=== PATIENT | female | born 1985 | race Caucasian/White ===

== ENCOUNTER 2017-06-03 16:17 | Emergency (ER) | payer OTHER ==
[~2017-06-03] VITALS: Ht 172.7 cm; Wt 113.4 kg
[~2017-06-03 16:17] MED LIST: ACYCLOVIR800 MG PO; ALBUTEROL SULF8.5 GM INH; AMBIEN5 MG PO; AMLODIPINE BESY10 MG PO; BACLOFEN10 MG PO; BUSPIRONE HCL15 MG; BUSPIRONE HCL5 MG PO; CHLORPROMAZINE10 MG PO; CIPRO500 MG PO; CLARITIN10 M1 PO; CLONIDINE HCL0.1 MG PO; COMPAZINE25 MG RC; COUMADIN5 MG PO; CRUTCH1 EACH; CYCLOBENZAPRINE10 MG PO; CYMBALTA60 MG PO; DOXYCYCLINE HY100 MG PO; DULOXETINE HCL60 MG PO; FLAGYL500 MG PO; FLEXERIL10 MG PO; GABAPENTIN100 MG PO; GABAPENTIN300 MG PO; GUAIATUSSIN AC10 ML PO; HYDROCODON-ACE1 EA10 PO; IBUPROFEN600 MG PO; IBUPROFEN800 MG PO; KEFLEX500 MG PO; KLOR-CON 1010 MEQ PO; LABETALOL HCL100 MG PO; LASIX20 MG PO; LORTAB 7.5-5001 EACH PO; MECLIZINE HCL25 MG PO; MEDROL4 M1 PO; MINIPRESS1 MG PO; MINIPRESS2 MG PO; NORCO 10-325 T1 EACH PO; NORCO 5-325 TA1 EACH PO; PENICILLIN V P500 MG PO; PHENERGAN25 MG/1 M1 PO; PRAZOSIN HCL1 MG PO; PREDNISONE20 MG PO; PRENATAL-FOLIC1 EACH PO; PROMETHAZINE HC25 M1 PO; PROMETHAZINE-COD5 ML PO; PROTONIX40 MG PO; SUCRALFATE1 GM PO; TRAZODONE HCL100 MG PO; ULTRAM50 MG PO; ZOFRAN ODT8 MG PO; ZOLOFT100 MG PO; ZOLOFT50 MG PO; [UNRECOGNIZED DRUG - OTHER] PO
[2017-06-03] MEDS ORDERED: IBUPROFEN200 MG PO (16:27)
== END 2017-06-03 17:41 | disposition home or self-care (01) ==
LOC: ED 16:17
DX: G43.909 Migraine, unspecified, not intractable, without status migrainosus (principal); G51.0 Bell's palsy; Z86.718 Personal history of other venous thrombosis and embolism; F17.200 Nicotine dependence, unspecified, uncomplicated; Z88.1 Allergy status to other antibiotic agents; Z88.8 Allergy status to other drugs, medicaments and biological substances; Z79.899 Other long term (current) drug therapy
CPT/HCPCS: 96372; 99282; J1885; J2550; J3030

== ENCOUNTER 2017-07-03 13:32 | Emergency (ER) | payer SELFPAY ==
[~2017-07-03] VITALS: Ht 172.7 cm; Wt 113.4 kg
[~2017-07-03 13:32] MED LIST changes: +IBUPROFEN200 MG PO
== END 2017-07-03 13:56 | disposition home or self-care (01) ==
LOC: ED 13:32
DX: Z00.8 Encounter for other general examination (principal)

== ENCOUNTER 2017-10-16 20:02 | Emergency (ER) | payer BC ==
[~2017-10-16] VITALS: Ht 172.7 cm; Wt 108.9 kg
[2017-10-16] MEDS ORDERED: IBUPROFEN600 MG PO (23:40)
[2017-10-16] MEDS ORDERED: TRAMADOL HCL50 MG PO (23:40)
== END 2017-10-17 00:10 | disposition home or self-care (01) ==
LOC: ED 20:02
DX: R10.32 Left lower quadrant pain (principal); F17.200 Nicotine dependence, unspecified, uncomplicated; Z90.49 Acquired absence of other specified parts of digestive tract; Z90.89 Acquired absence of other organs; Z98.51 Tubal ligation status; Z88.8 Allergy status to other drugs, medicaments and biological substances; Z88.1 Allergy status to other antibiotic agents
CPT/HCPCS: 74177; 80053; 81001; 83690; 84703; 85025; 96374; 96375; 99284; J2270; J2405; J7030; Q9967

== ENCOUNTER 2017-12-14 17:27 | Emergency (ER) | payer BC ==
[~2017-12-14] VITALS: Ht 172.7 cm; Wt 108.9 kg
[~2017-12-14 17:27] MED LIST changes: +TRAMADOL HCL50 MG PO
[2017-12-14] MEDS ORDERED: DULOXETINE HCL30 MG PO (17:54)
[2017-12-14] MEDS ORDERED: BUSPIRONE HCL5 MG PO (17:54)
[2017-12-14] MEDS ORDERED: CLONAZEPAM0.5 MG PO (17:55)
[2017-12-14] MEDS ORDERED: PRAZOSIN HCL2 MG PO (17:55)
[2017-12-14] MEDS ORDERED: GUAIFEN-CODEINE10 ML PO (18:00)
[2017-12-14] MEDS ORDERED: AUGMENTIN 875-1 EACH PO (18:00)
== END 2017-12-14 18:10 | disposition home or self-care (01) ==
LOC: ED 17:27
DX: J06.9 Acute upper respiratory infection, unspecified (principal); J40 Bronchitis, not specified as acute or chronic; F17.200 Nicotine dependence, unspecified, uncomplicated; Z88.1 Allergy status to other antibiotic agents; Z88.8 Allergy status to other drugs, medicaments and biological substances; Z79.899 Other long term (current) drug therapy
CPT/HCPCS: 99283

== ENCOUNTER 2018-02-07 18:22 | Emergency (ER) | payer BC ==
[~2018-02-07] VITALS: Ht 172.7 cm; Wt 108.9 kg
[~2018-02-07 18:22] MED LIST changes: +AUGMENTIN 875-1 EACH PO; +CLONAZEPAM0.5 MG PO; +DULOXETINE HCL30 MG PO; +GUAIFEN-CODEINE10 ML PO; +PRAZOSIN HCL2 MG PO
--- NOTE | 2018-02-08 19:25 | EKG ---
[facility] [address] [facility] [place], [place] [address] Signed Normal sinus rhythm Normal ECG Confirmed by CAYDEN BRINK MD ([id number]) on 02/08/2018 7:25:00 PM Electronically Signed By: CAYDEN BRINK MD 02/08/18 1925 PATIENT NAME: SHERRY PANIAGUA Electrocardiogram DATE OF : 85 PHYSICIAN: CAYDEN BRINK MD REPORT #: [id number] REPORT IS CONFIDENTIAL AND NOT TO BE RELEASED WITHOUT AUTHORIZATION
== END 2018-02-07 22:42 | disposition home or self-care (01) ==
LOC: ED 18:22
DX: R55 Syncope and collapse (principal); R51 Headache; F17.200 Nicotine dependence, unspecified, uncomplicated; Z88.8 Allergy status to other drugs, medicaments and biological substances; Z88.1 Allergy status to other antibiotic agents; Z79.899 Other long term (current) drug therapy
CPT/HCPCS: 70450; 71045; 80053; 81001; 83605; 84703; 85025; 93005; 93010; 96374; 96375; 99284; J0780; J1885; J2060; J2405; J2550

== ENCOUNTER 2018-02-25 17:17 | Emergency (ER) | payer BC ==
[~2018-02-25] VITALS: Ht 172.7 cm; Wt 108.9 kg
--- NOTE | 2018-02-26 12:42 | EKG ---
[facility] [address] [facility] [place], [place] [address] Signed Normal sinus rhythm Normal ECG When compared with ECG of 25-FEB-2018 17:50, (Unconfirmed) No significant change was found Confirmed by CAYDEN BRINK MD ([id number]) on 02/26/2018 12:42:34 PM Electronically Signed By: CAYDEN BRINK MD 02/26/18 1242 PATIENT NAME: SHERRY PANIAGUA Electrocardiogram DATE OF : [birth year] PHYSICIAN: CAYDEN BRINK MD REPORT #: [id number] REPORT IS CONFIDENTIAL AND NOT TO BE RELEASED WITHOUT AUTHORIZATION
--- NOTE | 2018-02-26 12:42 | EKG ---
[facility] [address] [facility] [place], [place] [address] Signed Normal sinus rhythm Normal ECG When compared with ECG of 07-FEB-2018 18:51, No significant change was found Confirmed by CAYDEN BRINK MD ([id number]) on 02/26/2018 12:42:26 PM Electronically Signed By: CAYDEN BRINK MD 02/26/18 1242 PATIENT NAME: ARCELIASHERRY RANJIT Electrocardiogram DATE OF : 85 PHYSICIAN: CAYDEN BRINK MD REPORT #: [id number] REPORT IS CONFIDENTIAL AND NOT TO BE RELEASED WITHOUT AUTHORIZATION
== END 2018-02-25 21:45 | disposition home or self-care (01) ==
LOC: ED 17:17
DX: T42.4X2A Poisoning by benzodiazepines, intentional self-harm, initial encounter (principal); F17.200 Nicotine dependence, unspecified, uncomplicated; Z88.8 Allergy status to other drugs, medicaments and biological substances; Z88.1 Allergy status to other antibiotic agents; Z79.899 Other long term (current) drug therapy
CPT/HCPCS: 80053; 80176; 81001; 84443; 84703; 85025; 93005; 93010; 99283; G0480

== ENCOUNTER 2019-01-02 19:53 | Emergency (ER) | payer OTHER, BC ==
[~2019-01-02] VITALS: Ht 172.7 cm; Wt 99.8 kg
--- OUTSIDE RECORDS SUMMARY | ~2019-01-02 | XMS | Clinical Summary ---
Demographics + + + | Address | [address] | | | [place] [address] | + + + | Home Phone | | + + + | Preferred Language | Unknown | + + + | Marital Status | | + + + | Jew Affiliation | Unknown | + + + | Race | Unknown | + + + | Ethnic Group | Unknown | + + + Author + + + | Author | [facility] | | | and [place] | + + + | Organization | [facility] | | | and [place] | + + + | Address | Unknown | + + + | Phone | Unavailable | + + + Support + + + + + | Name | Relationship | Address | Phone | + + + + + | Nae,Paulino | ECON | [address] | | | | | [place], [place] | | | | | [address] | | + + + + + Care Team Providers + +------+ + | Care Engraver Hand Soft Metals Name | Role | Phone | + +------+ + | No, Physician | PP | Unavailable | + +------+ + Allergies + + + + + + | Active Allergy | Reactions | Severity | Noted | Comments | | | | | Date | | + + + + + + | Diphenhydramine | | | 02/18/20 | "panic attack" | | | | | 18 | | + + + + + + | Metoclopramide | | High | 02/18/20 | "Can't breath" | | | | | 18 | | + + + + + + Current Medications + + +-------+---------+------+------+-------+ | Prescription | Sig. | Disp. | Refills | Star | End | Statu | | | | | | t | Date | s | | | | | | Date | | | + + +-------+---------+------+------+-------+ | DULoxetine | Take 30 mg by mouth | | | | | Activ | | (CYMBALTA) [address] | Daily. | | | | | e | | capsule | | | | | | | + + +-------+---------+------+------+-------+ | clonazePAM | Take 0.5 mg by mouth | | | | | Activ | | (KLONOPIN) 0.5 mg | nightly. | | | | | e | | tablet | | | | | | | + + +-------+---------+------+------+-------+ | prazosin | Take 2 mg by mouth | | | | | Activ | | (MINIPRESS) 2 MG | nightly. | | | | | e | | capsule | | | | | | | + + +-------+---------+------+------+-------+ | busPIRone (BUSPAR) | Take 5 mg by mouth 3 | | | | | Activ | | 5 mg tablet | times daily. | | | | | e | + + +-------+---------+------+------+-------+ Active Problems Not on file Social History + + + +--------+------+ | [...] + +---------+ + | Alcohol Use | Drinks/We | oz/Week | Comments | | | ek | | | + + +---------+ + | Yes | 1 Shots | 0.6 | " twice a month" | | | of | | | | | liquor | | | + + +---------+ + + + + | Sex Assigned at | Date Recorded | | | | + + + | Not on file | | + + + Last Filed Vital Signs + + + + | Vital Sign | Reading | Time Taken | + + + + | Blood Pressure | 131/65 | 02/17/20189 PDT | + + + + | Pulse | 72 | 02/17/20181801 PDT | + + + + | Temperature | 37.1 C (98.7 F) | 02/17/2018 1649 PDT | + + + + | Respiratory Rate | 21 | 02/17/20181801 PDT | + + + + | Oxygen Saturation | 99% | 02/17/20181801 PDT | + + + + | Inhaled Oxygen | - | - | | Concentration | | | + + + + | Weight | 113.4 kg (250 lb) | 02/17/20181648 PDT | + + + + | Height | 172.7 cm (5' 8") | 02/17/20181648 PDT | + + + + | Body Mass Index | 38.01 | 02/17/20181648 PDT | + + + + Plan of Treatment + + + + + | Health Maintenance | Due Date | Last Done | Comments | + + + + + | Vaccine: | | | | | Dtap/Tdap/Td (1 - | 5 | | | | Tdap) | | | | + + + + + | Cervical Cancer | | | | | Screening (Pap) | 6 | | | + + + + + | Vaccine: Influenza | | | | | (#1) | 8 | | | + + + + + Results Not on filefrom Last 3 Months Insurance +-------+--------+ +------+-------+---------+ | Payer | Benefi | Subscriber | Type | Phone | Address | | | t Plan | ID | | | | | | / | | | | | | | Group | | | | | +-------+--------+ +------+-------+---------+ | BCBS | BCBS | [id number] | PPO | | | | | OOS | 6 | | | | | | PPO | | | | | +-------+--------+ +------+-------+---------+ + +--------+ +--------+ + + | Guarantor Name | Accoun | Relation to | Date | Phone | Billing Address | | | t Type | Patient | of | | | | | | | | | | + +--------+ +--------+ + + | SHERRY PANIAGUA | Person | Self [birth year] | Home: | [address] | | | al/Fam | | 1986 | [phone] | [place] [address] | | | [place] | | | [phone] | | + +--------+ +--------+ + +
--- OUTSIDE RECORDS SUMMARY | ~2019-01-02 | XMS | Clinical Summary ---
Demographics + + + | Address | [address] | | | [place] [address] | + + + | Home Phone | | + + + | Preferred Language | Unknown | + + + | Marital Status | | + + + | Temple Affiliation | Unknown | + + + | Race | Unknown | + + + | Ethnic Group | Unknown | + + + Author + + + | Author | [facility] | | | and [place] | + + + | Organization | [facility] | | | and [place] [...] [place], [place] | | | | | [address] | | + + + + + Care Team Providers + +------+ + | Care Spar Finisher Name | Role | Phone | + [...] +-------+--------+ +------+-------+---------+ | BCBS | BCBS | [id number] | PPO | | | | | [...] | 1986 | [phone] | [place] [address] | | | berto | | | [phone] | | + +--------+ +--------+ + +
[~2019-01-02 19:53] MED LIST changes: +LATUDA60 MG; +OMEPRAZOLE20 MG PO
--- OUTSIDE RECORDS SUMMARY | 2019-01-02 19:56 | XMS ---
PreManage Notification: SHERRY PANIAGUA Security Jewelry Consultant Events No recent Security Events currently on file CRITERIA MET - Group Notification - [facility] - Has Care Guidelines CARE PROVIDERS There are no care providers on record at this time. Guidelines Source: [facility] Guidelines Date: 04/13/2017 Care Coordination: ENCOURAGE PATIENT TO USE PCP FOR FOLLOW UP AND NON-EMERGENT PROBLEMS. GIVE PATIENT THIS RODEO RIDER NAME AND NUMBER FOR HELP AND QUESTIONS. SUZETTE ELMORE RN CABLE MOCK UP ASSEMBLER [facility] [phone] E.DSuha VISIT COUNT (12 MO.) 1 [facility] [address] TOTAL 8 NOTE: Visits indicate total known visits. ED/UCC VISIT TRACKING (12 MO.) 01/02/2019 19:53 [facility] [place] TYPE: Emergency COMPLAINT: - R WRIST SELBY/INJURY 05/30/2018 18:40 [facility] TYPE: Emergency DIAGNOSES: - Mild intermittent asthma with (acute) exacerbation - Sepsis, unspecified organism - Nicotine dependence, unspecified, uncomplicated - Generalized Body Aches - Other stimulant dependence, in remission - Bodyaches 05/25/2018 10:54 [facility] TYPE: Emergency DIAGNOSES: - Unspecified abdominal pain - Abd pain and chest pain - Chest Pain - Abdominal Pain 05/23/2018 08:44 [facility] TYPE: Emergency DIAGNOSES: - Nicotine dependence, unspecified, uncomplicated - Shortness of Breath - Bronchitis, not specified as acute or chronic - Sob 04/26/2018 04:23 [facility] TYPE: Emergency COMPLAINT: - CHEST PAIN DIAGNOSES: - Nicotine dependence, unspecified, uncomplicated - Other manager of recruiting (current) drug therapy - Chest pain, unspecified 02/25/2018 17:17 [facility] TYPE: Emergency COMPLAINT: - POSS OD ON MEDICATION DIAGNOSES: - Nicotine dependence, unspecified, uncomplicated - Allergy status to other antibiotic agents status - Poisoning by benzodiazepines, intentional self-harm, initial encounter - Allergy status to other drugs, medicaments and biological substances status - Other intermediate (current) drug therapy [facility]17/2018 16:[facility] DIAGNOSES: - Slurred Speech - Possible Seizure - Panic disorder [episodic paroxysmal anxiety] - Conversion disorder with seizures or convulsions 02/07/2018 18:[address] [facility] [place] TYPE: Emergency COMPLAINT: - POSS SEZUIRE DIAGNOSES: - Allergy status to other antibiotic agents status - Nicotine dependence, unspecified, uncomplicated - Syncope and collapse - Allergy status to other drugs, medicaments and biological substances status - Other intermediate (current) drug therapy - Headache INPATIENT VISIT TRACKING (12 MO.) 05/30/2018 18:40 [facility] TYPE: Internal Medicine DIAGNOSES: - Nicotine dependence, unspecified, uncomplicated - Sepsis, unspecified organism - Other stimulant dependence, in remission - Mild intermittent asthma with (acute) exacerbation [email or web address]
[2019-01-02] MEDS ORDERED: SEROQUEL100 MG PO (20:31)
== END 2019-01-02 23:13 | disposition home or self-care (01) ==
LOC: ED 19:53
PROC: 2W3CX1Z Immobilization of Right Lower Arm using Splint (ICD-10-PCS; principal; 2019-01-02)
DX: S63.501A Unspecified sprain of right wrist, initial encounter (principal); F17.200 Nicotine dependence, unspecified, uncomplicated; Z90.49 Acquired absence of other specified parts of digestive tract; Z88.8 Allergy status to other drugs, medicaments and biological substances; Z88.1 Allergy status to other antibiotic agents; Z79.899 Other long term (current) drug therapy; W10.9XXA Fall (on) (from) unspecified stairs and steps, initial encounter
CPT/HCPCS: 29125; 73110; 99283-25

== ENCOUNTER 2019-02-13 21:49 | Emergency (ER) | payer BC, OTHER ==
[~2019-02-13] VITALS: Ht 172.7 cm; Wt 99.8 kg
--- OUTSIDE RECORDS SUMMARY | ~2019-02-13 | XMS | Clinical Summary ---
Demographics + + + | Address | [address] | | | [place] [address] | + + + | Home Phone | | + + + | Preferred Language | Unknown | + + + | Marital Status | | + + + | Gnosticist Affiliation | Unknown | + + + | Race | Unknown | + + + | Ethnic Group | Unknown | + + + Author + + + | Author | [facility] | | | and [place] | + + + | Organization | [facility] | | | and [place] [...] [place], [place] | | | | | [address] | | + + + + + Care Team Providers + +------+ + | Care Salvager Helper Name | Role | Phone | + [...] | + + + + + + Medications + + + +---------+------+------+-------+ | Medication | Sig | Dispensed | Refills | Star | End | Statu | | | | | | t | Date | s | | | | | | Date | | | + + + +---------+------+------+-------+ | DULoxetine | Take 30 mg by mouth | | 0 | | | Activ | | (CYMBALTA) [address] | Daily. | | | | | e | | capsule | | | | | | | + + + +---------+------+------+-------+ | clonazePAM | Take 0.5 mg by mouth | | 0 | | | Activ | | (KLONOPIN) 0.5 mg | nightly. | | | | | e | | tablet | | | | | | | + + + +---------+------+------+-------+ | prazosin | Take 2 mg by mouth | | 0 | | | Activ | | (MINIPRESS) 2 MG | nightly. | | | | | e | | capsule | | | | | | | + + + +---------+------+------+-------+ | busPIRone (BUSPAR) | Take 5 mg by mouth 3 | | 0 | | | Activ | | 5 mg tablet | times daily. | | | | | e | + + + +---------+------+------+-------+ Active Problems Not on file Social History [...] recent travel history available. | + + Last Filed Vital Signs + + + + | Vital Sign | Reading | Time Taken | + + + + | Blood Pressure | 131/65 | 02/17/20189 PDT | + + + + | Pulse | 72 | 02/17/20181801 PDT | + + + + | Temperature | 37.1 C (98.7 F) | 02/17/20181648 PDT | + + + [...] Vaccine: Influenza | | | | | (Season Ended) | 9 | | | + + + + + Results Not on filefrom Last 3 Months Insurance +-------+--------+ +--------+-------+---------+------+ | Payer | Benefi | Subscriber | Effect | Phone | Address | Type | | | t Plan | ID | jennifer | | | | | | / | | Dates | | | | | | Group | | | | | | +-------+--------+ +--------+-------+---------+------+ | BCBS | BCBS | [id number] | | | | PPO | | | OOS | 6 | [id number] | | | | | | PPO | | esent | | | | +-------+--------+ +--------+-------+---------+------+ + +--------+ +--------+ + + | Guarantor Name | Accoun | Relation to | Date | Phone | Billing Address | | | t Type | Patient | of | | | | | | | | | | + +--------+ +--------+ + + | Jessica Soni | Person | Self | [birth year] | | [address] | | | al/Elder | | 1986 | [phone] | [place] [address] | | | [place] | | | 4 (Home) | | + +--------+ +--------+ + + Advance Directives Patient has advance care planning documents on file. For more information, please contact:[facility] [place] [address]
--- OUTSIDE RECORDS SUMMARY | ~2019-02-13 | XMS | Clinical Summary ---
Demographics + + + | Address | [address] | | | [place] [address] | + + + | Home Phone | | + + + | Preferred Language | Unknown | + + + | Marital Status | | + + + | Sikhism Affiliation | Unknown | + + + | Race | Unknown | + + + | Ethnic Group | Unknown | + + + Author + + + | Author | [facility] | | | and [place] | + + + | Organization | [facility] | | | and [place] | [...] [place], [place] | | | | | [address] | | + + + + + Care Team Providers + +------+ + | Care Auditor Internal Name | Role | Phone | + [...] +-------+--------+ +--------+-------+---------+------+ | BCBS | BCBS | [id number] | | | | PPO | | [...] | 1986 | [phone] | [place] [address] | | | [place] | | | 4 (Home) | | + +--------+ +--------+ + + Advance Directives Patient has advance care planning documents on file. For more information, please contact:[facility] [place] [address]
[~2019-02-13 21:49] MED LIST changes: +SEROQUEL100 MG PO
--- OUTSIDE RECORDS SUMMARY | 2019-02-13 21:52 | XMS ---
PreManage Notification: SHERRY PANIAGUA Security Bucket Hooker Events No recent Security Events currently on file CRITERIA MET - Group Notification - [facility] - Has Care Guidelines CARE PROVIDERS BENJI LARSEN Nurse Practitioner: Family 01/03/2019-Current PHONE: Unknown Guidelines Source: [facility] Guidelines Date: 04/13/2017 Care Coordination: ENCOURAGE PATIENT TO USE PCP FOR FOLLOW UP AND NON-EMERGENT PROBLEMS. GIVE PATIENT THIS PRE CODER NAME AND NUMBER FOR HELP AND QUESTIONS. SUZETTE ELMORE RN JACKET CHANGER [facility] [phone] Care History Medical/Surgical 01/03/2019 [facility] - Patient is currently established with [facility]. If patient is seen in the ED during business hours. Please contact CHWs at [facility]. Care Recommendation: This patient has had 5 or more Emergency Department visits in the last 12 months.\T\nbsp; Patient requires education on the scope and purpose of the ED as an acute care provider not a Primary Care Provider and should not be utilized for chronic conditions.\T\nbsp; These are guidelines and the provider should exercise clinical judgment when providing care. E.D. VISIT COUNT (12 MO.) 1 [facility] 3 [facility] 4 HER[facility]ERT Carballo TOTAL 8 NOTE: Visits indicate total known visits. ED/UCC VISIT TRACKING (12 MO.) 02/13/2019 21:50 [facility] [place] TYPE: Emergency COMPLAINT: - POSS BLOOD CLOT 01/02/2019 19:53 [facility] [place] TYPE: Emergency COMPLAINT: - R WRIST SELBY/INJURY DIAGNOSES: - Pain in right wrist - Fall (on) (from) unspecified stairs and steps, initial encounter - Acquired absence of other specified parts of digestive tract - Other salvage determiner (current) drug therapy - Nicotine dependence, unspecified, uncomplicated - Allergy status to other antibiotic agents status - Unspecified sprain of right wrist, initial encounter - Allergy status to other drugs, medicaments and biological substances status 05/30/2018 18:40 [facility] TYPE: Emergency DIAGNOSES: - Mild intermittent asthma with (acute) exacerbation - Sepsis, unspecified organism - Nicotine dependence, unspecified, uncomplicated - Generalized Body Aches - Other stimulant dependence, in remission - Bodyaches 05/25/2018 10:54 [facility] TYPE: Emergency DIAGNOSES: - Unspecified abdominal pain - Abd pain and chest pain - Chest Pain - Abdominal Pain 05/23/2018 08:44 [facility] TYPE: Emergency DIAGNOSES: - Nicotine dependence, unspecified, uncomplicated - Shortness of Breath - Bronchitis, not specified as acute or chronic - Sob 04/26/2018 04:[address] [facility] [place] TYPE: Emergency COMPLAINT: - CHEST PAIN DIAGNOSES: - Nicotine dependence, unspecified, uncomplicated - Other salvage determiner (current) drug therapy - Chest pain, unspecified 02/25/2018 17:17 [facility] [place] TYPE: Emergency COMPLAINT: - POSS OD ON MEDICATION DIAGNOSES: - Nicotine dependence, unspecified, uncomplicated - Allergy status to other antibiotic agents status - Poisoning by benzodiazepines, intentional self-harm, initial encounter - Allergy status to other drugs, medicaments and biological substances status - Other salvage determiner (current) drug therapy 02/17/2018 16:44 [facility] TYPE: Emergency DIAGNOSES: - Slurred Speech - Possible Seizure - Panic disorder [episodic paroxysmal anxiety] - Conversion disorder with seizures or convulsions INPATIENT VISIT TRACKING (12 MO.) 05/30/2018 18:40 [facility] TYPE: Internal Medicine DIAGNOSES: - Nicotine dependence, unspecified, uncomplicated - Sepsis, unspecified organism - Other stimulant dependence, in remission - Mild intermittent asthma with (acute) exacerbation [email or web address]
[2019-02-13] MEDS ORDERED: ELIQUIS5 MG PO (23:56)
== END 2019-02-14 00:08 | disposition home or self-care (01) ==
LOC: ED 21:49
DX: I82.492 Acute embolism and thrombosis of other specified deep vein of left lower extremity (principal); F17.200 Nicotine dependence, unspecified, uncomplicated; Z90.49 Acquired absence of other specified parts of digestive tract; Z88.1 Allergy status to other antibiotic agents; Z88.8 Allergy status to other drugs, medicaments and biological substances
CPT/HCPCS: 93971; 99283-25

== ENCOUNTER 2020-01-29 17:18 | Emergency (ER) | payer BC, OTHER ==
--- OUTSIDE RECORDS SUMMARY | ~2020-01-29 | XMS | Encounter Summary ---
Demographics + + + | Address | [address] | | | [place] [address] | + + + | Home Phone | | + + + | Preferred Language | Unknown | + + + | Marital Status | | + + + | Alevism Affiliation | Unknown | + + + | Race | Unknown | + + + | Ethnic Group | Unknown | + + + Author + + + | Author | [facility] | | | and [place] | + + + | Organization | [facility] | | | and [place] [...] [place], [place] | | | | | [address] | | + + + + + Care Team Providers + +------+ + | Care Hand Loom Weaver Name | Role | Phone | + +------+ + PCP | Unavailable | + +------+ + Encounter Details +--------+ + + + + | Date | Type | Department | Care Team | Description | +--------+ + + + + | 06/02/ | Hospital | [facility] | Conversion | Back pain, | | 2014 | Encounter | CONVERSION [address] | Transaction, | unspecified location | | | | [address] | Provider Unknown | | | | | [place] | [phone] | | | | | [address] | | | | | | [phone] | | | +--------+ + + + + Social History + +-------+ +--------+------+ | Tobacco Use | Types | Packs/Day | Years | Date | | | | | Used | | + +-------+ +--------+------+ | Never Assessed | | | | | + +-------+ +--------+------+ + + + | Sex Assigned at [...] + + documented as of this encounter Plan of Treatment Not on filedocumented as of this encounter Procedures + +--------+ + + + | Procedure Name | Priori | Date/Time | Associated Diagnosis | Comments | | | ty | | | | + +--------+ + + + | MRI LUMBAR SPINE WO | Routin | 05/06/2015 | | Results for this | | CONTRAST | e | 7:01 PM | | procedure are in the | | | | PDT | | results section. | + +--------+ + + + documented in this encounter Results MRI Lumbar Spine wo Contrast (05/06/2015 7:01 PM PDT) + + | Specimen | + + | | + + + + + | Narrative | Performed At | + + + | This is a non-reportable procedure without a radiologist report and | | | is used for image storage only | | + + + + + | Procedure Note | + + | Jose Enrique Villa - 05/23/2019 4:08 AM PDT This is a non-reportable procedure | | without a radiologist report and isused for image storage only | + + documented in this encounter Visit Diagnoses + + | Diagnosis | + + | Back pain, unspecified location | + + documented in this encounter"
--- OUTSIDE RECORDS SUMMARY | ~2020-01-29 | XMS | Clinical Summary ---
Demographics + + + | Address | [address] | | | [place] [address] | + + + | Home Phone | | + + + | Preferred Language | Unknown | + + + | Marital Status | | + + + | Yarsanism Affiliation | Unknown | + + + | Race | Unknown | + + + | Ethnic Group | Unknown | + + + Author + + + | Author | [facility] | | | and [place] | + + + | Organization | [facility] | | | and [place] | + + + | Address | Unknown | + + + | Phone | Unavailable | + + + Support + + + + + | Name | Relationship | Address | Phone | + + + + + | Paulino Soni | ECON | [address] | | | | | [place], [place] | | | | | [address] | | + + + + + Care Team Providers + +------+ + | Care Warehouse Specialist Name | Role | Phone | + +------+ + | Kulwant Bailey MD | PCP | | + +------+ + Allergies + + [...] | | + + + + + Plan of Treatment + + + + + | Health Maintenance | Due Date | Last Done | Comments | + + + + + | Vaccine: | | | | | Pneumococcal 19-64 | 2 | | | | (1 of 1 - PPSV23) | | | | + + + + + | Vaccine: | | | | | Dtap/Tdap/Td (1 - | 7 | | | | Tdap) | | | | + + + + + | Cervical Cancer | | | | | Screening (Pap) | 6 | | | + + + + + | Vaccine: Influenza | | | | | (Season Ended) | 0 | | | + + + + [...] +-------+--------+ +--------+-------+---------+------+ | BCBS | BCBS | [id number] | | | | PPO | | [...] Person | Self | [birth year] | | [address] | | | al/Fam | | 1986 | [phone] | [place] [address] | | | [place] | | | 4 (Home) | | + +--------+ +--------+ + + Advance Directives + + + + + | Type | Date Recorded | Patient | Explanation | | | | Casework Supervisor | | + + + + + | Power of | | | | | Rewriter | | | | + + + + + | Advance | 02/17/2018 6:17 | | | | Directive | PM | | | + + + + +
--- OUTSIDE RECORDS SUMMARY | ~2020-01-29 | XMS | Encounter Summary ---
Demographics + + + | Address | [address] | | | [place] [address] | + + + | Home Phone | | + + + | Preferred Language | Unknown | + + + | Marital Status | | + + + | Mormonism Affiliation | Unknown | + + + | Race | Unknown | + + + | Ethnic Group | Unknown | + + + Author + + + | Author | [facility] | | | and [place] | + + + | Organization | [facility] | | | and [...] [place], [place] | | | | | [address] | | + + + + + Care Team Providers + +------+ + | Care Bed And Breakfast Operator Name | Role | Phone | + +------+ + PCP | Unavailable | + +------+ + Encounter Details +--------+ + + + + | Date | Type | Department | Care Team | Description | +--------+ + + + + | 05/19/ | [facility] | [facility] | [place], | | | 2013 - | Encounter | CENTER SURGICAL [address] | Blaise Bradley MD [address] | | | | | [address] | [address] | | | 05/24/ | | [place], [place] | [place] [address] | | | 2012 | | [address] | [phone] | | | | | [phone] | | | +--------+ + + + [...] 0608 Date of Service: 05/24/131850 Status: Signed Window Air Conditioner Installer: Blaise Brsyon MD (Physician) Related Notes: Original Note by Blaise Bryson MD (Physician) filed at 05/24/131854 [facility] Service: Obstetrics & Gynecology Discharge Summary [...] HOSPITAL COURSE: The patient was admitted to [facility] where she was placed on the antepartum unit with hypertension and IUGR. A 24-hour urine obtained revealing 4.4 g protei n. Consultation was had with Dr. Terrazas. Recommendation made to proceed with delivery giv en evidence of severe preeclampsia with evidence of IUGR. The patient was then [facility] operating room where she underwent primary [...] PRIMARY SECTION; Surgeon: Blaise Bryson MD; Location: [facility] L& D; Service: BOOK PACKER; Laterality: N/A; Allergies Allergen Reactions Azithromycin Rash [...] up: Blaise Bryson MD [address] [address] Schedule an appointment as soon as possible for a visit on 05/29/2013 Kulwant Bailey MD [address] [facility] [facility] [place] [address] Schedule an appointment as soon as possible [...] Discontinued, Historical Med STOP taking these medications ycfdwbiywj-xbswgxucxdtmk-qbalwezj (FIORICET WITH CODEINE) [id number] MG per capsule Com ments: Reason for [...] 05/24/131850 Date of Service: 05/24/131847 Status: Signed Window Air Conditioner Installer: Blaise Bryson MD (Physician) Obstetrical Discharge Form [...] 05/24/131456 Date of Service: 05/24/131454 Status: Signed Window Air Conditioner Installer: Carlota Henry RN (Registered Nurse) Patient given discharge instructions, along with prescriptions. All questions answered, VSS , denies pain, all belongings sent with patient. Carlota Henry RN Blaise Hernandez MD - 05/23/2013 10:27 PM PDT Progress Notes by Blaise Bryson MD at 05/23/132226 Author: Blaise Bryson MD Service: Obstetrics/Gynecology Author Type: Physician Filed: 05/23/132228 Date of Service: 05/23/132226 Status: Signed Window Air Conditioner Installer: Blaise Bryson MD (Physician) [facility] Service: Obstetrics & Gynecology C/S Progress [...] Service: Obstetrics/Gynecology Author Type: Physician Filed: 05/22/13 2841 Date of Service: 05/22/132317 Status: Signed Window Air Conditioner Installer: Blaise Bryson MD (Physician) [facility] Service: Obstetrics & Gynecology C/S Progress [...] Author: OLIVIA Cox Service: (none) Author Type: Seafood Technology Specialist Filed: 05/21/131641 Date of Service: 05/21/131641 Status: Signed Window Air Conditioner Installer: OLIVIA Cox (Seafood Technology Specialist) CM met with Sherry KHOURY ([phone]) in her room. MOB stated she felt good enough to talk with me. FOB's name is Stone Dao. MOB and FOB reside together at [address] [place] [address]. MOB's 9 yo boy also resides with [...] carseat yet. CM informed MOB of $30 [facility] carseat. CM left name and number on NICU packet and encouraged MOB to cont act CM if any needs arise. OLIVIA Cox Blaise Hernandez MD - 05/20/2013 9:28 PM PDT Progress Notes by Blaise Bryson MD at 05/20/132127 Author: Blaise Bryson MD Service: Obstetrics/Gynecology Author Type: Physician Filed: 05/20/132134 Date of Service: 05/20/132127 Status: Signed Window Air Conditioner Installer: Blaise Bryson MD (Physician) [facility] Service: Obstetrics & Gynecology Antepartum Progress [...] At | + + + | CASE: [id number] PATIENT: SHERRY TESFAYE Surgical Pathology | EXTERNAL [...] | | comprised of pink-mckeon spongy parenchyma. Electrician Rectifier Maintenance sections of | | | the specimen are submitted as follows: Cassette Summary: (A1) | | | cord and membranes; (A2) printing sales representative full thickness section to | | | include a printing sales representative section of the described mckeon-brown | [...] | Testing performed at | | | [facility];[address] [facility];[place] [address] CULTURE | | | NO GROWTH | | | Testing performed at [facility], [address] [facility], | | | [place] [address] REPORT STATUS | | | 05/21/2013 FINAL [...]
--- OUTSIDE RECORDS SUMMARY | ~2020-01-29 | XMS | Encounter Summary ---
Demographics + + + | Address | [address] | | | [place] [address] | + + + | Home Phone | | + + + | Preferred Language | Unknown | + + + | Marital Status | | + + + | Sikhism Affiliation | Unknown | + + + | Race | Unknown | + + + | Ethnic Group | Unknown | + + + Author + + + | Author | [facility] | | | and [place] | + + + | Organization | [facility] | | | and [place] | + + + | Address | Unknown | + + + | Phone | Unavailable | + + + Support + + + + + | Name | Relationship | Address | Phone | + + + + + | Paulino oSni | ECON | [address] | | | | | [place] | | | | | [address] | | + + + + + Care Team Providers + +------+ + | Care Pasteurizing Machine Operator Name | Role | Phone | [...] + + | 02/17/ | Emergency | [facility] | Mimi Denise MD | Anxiety attack | | 2018 | | [facility] | [address] | (Primary Dx); | | | | [place] [address] | [place] [address] | Psychiatric | | | | [place], [place] | [phone] | pseudoseizure | | | | [address] | | | | | | [phone] | | | +--------+ + + + [...]
--- OUTSIDE RECORDS SUMMARY | ~2020-01-29 | XMS | Encounter Summary ---
Demographics + + + | Address | [address] | | | [place] [address] | + + + | Home Phone | | + + + | Preferred Language | Unknown | + + + | Marital Status | | + + + | Jewish Affiliation | Unknown | + + + | Race | Unknown | + + + | Ethnic Group | Unknown | + + + Author + + + | Author | [facility] | | | and [place] | + + + | Organization | [facility] [...] [place] | | | | | [address] | | + + + + + Care Team Providers + +------+ + | Care Journeyman Wireman Name | Role | Phone | + [...] | (Primary Dx); | | | | [place] [address] | [place] [address] | Psychiatric | | | | [place], [place] | [phone] | pseudoseizure | | | | [address] | | | | | | [phone] | | | +--------+ + + + [...] Care Everywhere.Anxiety, Your B ady's Response to (Latvian)documented in this encounter Medications at Time of [...]
--- OUTSIDE RECORDS SUMMARY | ~2020-01-29 | XMS | Encounter Summary ---
Demographics + + + | Address | [address] | | | [place] [address] | + + + | Home Phone | | + + + | Preferred Language | Unknown | + + + | Marital Status | | + + + | Adventism Affiliation | Unknown | + + + | Race | Unknown | + + + | Ethnic Group | Unknown | + + + Author + + + | Author | [facility] | | | and [place] | + + + | Organization | [facility] | | | and [place] [...] [place], [place] | | | | | [address] | | + + + + + Care Team Providers + +------+ + | Care Sheet Rock Nailer Name | Role | Phone | + +------+ + PCP | Unavailable | + +------+ + Encounter Details +--------+ + + + + | Date | Type | Department | Care Team | Description | +--------+ + + + + | 06/02/ | Hospital | [facility] | Conversion | Back pain, | | 2014 | Encounter | CONVERSION DEP [address] | Transaction, | unspecified location | | | | [address] | Provider Unknown | | | | | [place] | [phone] | | | | | [address] | | | | | | [phone] | | | +--------+ + + + [...]
--- OUTSIDE RECORDS SUMMARY | ~2020-01-29 | XMS | Encounter Summary ---
Demographics + + + | Address | [address] | | | [place] [address] | + + + | Home Phone | | + + + | Preferred Language | Unknown | + + + | Marital Status | | + + + | Nondenominational Affiliation | Unknown | + + + | Race | Unknown | + + + | Ethnic Group | Unknown | + + + Author + + + | Author | [facility] | | | and [place] | + + + | Organization | [facility] | | | and [place] | [...] | [place] | | | | | [address] | | + + + + + Care Team Providers + +------+ + | Care Tender Coordinator Name | Role | Phone | + [...] 2016 | | CONVERSION [address] | [address] | | | | | [address] | [place], | | | | | [facility] | [address] [place], | | | | | [address] | [place] [address] | | | | | [phone] | [phone] | | | | | | | [...] | | mmHg TR Vmax: 2.01 m/s Deodorizer Operator: LYLE Authenticated by: | | | LIOR [...] cmLVPWd: 0.81 cmLVOT Area: | | 4.08 [id number] Diam: 2.28 cm%FS: 31.88 %EF(Teich): 59.56 %ESV(Teich): [...] mlLAESV Index (A-L): 24.93 ml/m2LAAs A2C: 17.48 ag2HDPEO A-L A2C: 56.59 mlLALs | | A2C: 4.58 cmLAAs A4C: 17.33 [id number] A-L A4C: 49.53 mlLALs A4C: 5.14 cmAo Diam: | | 2.99 cmLA Diam: 3.93 cmLA/Ao: 1.31AV maxP.42 mmHgAV meanP.05 mmHgAV | | Vmax: 1.45 m/Samara Vmean: 0.91 m/Samara VTI: 24.77 cmAVA Vmax: 2.71 cm2AVA (VTI): | | 3.01 ul0ZDOG (Vmax): 0.00 cm2/m2AVAI (VTI): 0.00 cm2/m2LVOT maxP.71 mmHgLVOT | | meanP.17 mmHgLVSI Dopp: 33.22 ml/m2LVSV Dopp: 74.75 mlLVOT Vmax: 0.96 | | m/sLVOT Vmean: 0.70 m/sLVOT VTI: 18.28 cmMV A Stephen: 0.62 m/sMV DecT: 149.50 msMV | | E Stephen: 0.96 m/sMV E/A Ratio: 1.52MV PHT: 43.35 msMVA By PHT: 5.07 kj5Arlnll e': | | 0.10 m/sSeptal E/e': 9.32RAP: 5 mmHgRVSP: 21.16 mmHgTR maxP.16 mmHgTR | | Vmax: 2.01 m/s Deodorizer Operator: ROBERTuthenticated by: LIOR Meredith Date/Time: | | [...] |TR Vmax: 2.01 m/s | | | |Deodorizer Operator: | |Authenticated by: LIOR CUELLAR MD | |Report Date/Time: 11-12-2015 16:17:44 | | | |IMPRESSION: | |1. Essentially normal study. | + + documented in this encounter Visit Diagnoses Not on filedocumented in this encounter"
--- OUTSIDE RECORDS SUMMARY | ~2020-01-29 | XMS | Clinical Summary ---
Demographics + + + | Address | [address] | | | [place] [address] | + + + | Home Phone | | + + + | Preferred Language | Unknown | + + + | Marital Status | | + + + | Cheondoism Affiliation | Unknown | + + + | Race | Unknown | + + + | Ethnic Group | Unknown | + + + Author + + + | Author | [facility] | | | and [place] | + + + | Organization | [facility] | | | and [place] [...] [place], [place] | | | | | [address] | | + + + + + Care Team Providers + +------+ + | Care Senior Asset Manager Name | Role | Phone | + [...] +-------+--------+ +--------+-------+---------+------+ | BCBS | BCBS | [id number] | | | | PPO | | [...] | 1986 | [phone] | [place] [address] | | | berto | | | 4 (Home) | | + +--------+ +--------+ + + Advance Directives + + + + + | Type | Date Recorded | Patient | Explanation | | | | Manager Of Financial Reporting | | + + + + + | Power of | | | | | Engineer Assistant | | | | + + + + + | Advance | 02/17/2018 6:17 | | | | Directive | PM | | | + + + + +
--- OUTSIDE RECORDS SUMMARY | ~2020-01-29 | XMS | Encounter Summary ---
Demographics + + + | Address | [address] | | | [place] [address] | + + + | Home Phone | | + + + | Preferred Language | Unknown | + + + | Marital Status | | + + + | Islam Affiliation | Unknown | + + + | Race | Unknown | + + + | Ethnic Group | Unknown | + + + Author + + + | Author | [facility] | | | and [place] | + + + | Organization | [facility] | | | and [...] [place], [place] | | | | | [address] | | + + + + + Care Team Providers + +------+ + | Care Mattress Specialist Name | Role | Phone | + +------+ + PCP | Unavailable | + +------+ + Encounter Details +--------+ + + + + | Date | Type | Department | Care Team | Description | +--------+ + + + + | 05/19/ | [facility] | [facility] | [place], | | | 2013 - | Encounter | CENTER SURGICAL [address] | Blaise Bradley MD [address] | | | | | [address] | [address] | | | 05/24/ | | [place], [place] | [place] [address] | | | 2012 | | [address] | [phone] | | | | | [phone] | | | +--------+ + + + [...] 0608 Date of Service: 05/24/131850 Status: Signed Pellet Press Operator: Blaise Bryson MD (Physician) Related Notes: Original Note by Blaise Bryson MD (Physician) filed at 05/24/131854 [facility] Service: Obstetrics & Gynecology Discharge Summary [...] HOSPITAL COURSE: The patient was admitted to [facility] where she was placed on the antepartum unit with hypertension and IUGR. A 24-hour urine obtained revealing 4.4 g protei n. Consultation was had with Dr. Terrazas. Recommendation made to proceed with delivery giv en evidence of severe preeclampsia with evidence of IUGR. The patient was then brought to [facility] operating room where she underwent primary low [...] PRIMARY SECTION; Surgeon: Blaise Bryson MD; Location: [facility] L& D; Service: UROLOGY TEACHER; Laterality: N/A; Allergies Allergen Reactions Azithromycin Rash [...] up: Blaise Bryson MD [address] [address] Schedule an appointment as soon as possible for a visit on 05/29/2013 Kulwant Bailey MD [address] [facility] [address] Schedule an appointment as soon as possible [...] Discontinued, Historical Med STOP taking these medications hylxpqylyn-kzyfszvzalhby-esbclqwp (FIORICET WITH CODEINE) [id number] MG per capsule Com ments: Reason for [...] 05/24/131850 Date of Service: 05/24/131847 Status: Signed Pellet Press Operator: Blaise Bryson MD (Physician) Obstetrical Discharge Form [...] 05/24/131456 Date of Service: 05/24/131454 Status: Signed Pellet Press Operator: Carlota Henry RN (Registered Nurse) Patient given discharge instructions, along with prescriptions. All questions answered, VSS , denies pain, all belongings sent with patient. Carlota Henry RN Blaise Hernandez MD - 05/23/2013 10:27 PM PDT Progress Notes by Blaise Bryson MD at 05/23/132226 Author: Blaise Bryson MD Service: Obstetrics/Gynecology Author Type: Physician Filed: 05/23/132228 Date of Service: 05/23/132226 Status: Signed Pellet Press Operator: Blaise Bryson MD (Physician) [facility] Service: Obstetrics & Gynecology C/S Progress [...] Service: Obstetrics/Gynecology Author Type: Physician Filed: 05/22/13 3391 Date of Service: 05/22/132317 Status: Signed Pellet Press Operator: Blaise Bryson MD (Physician) [facility] Service: Obstetrics & Gynecology C/S Progress [...] Author: OLIVIA Cox Service: (none) Author Type: Diesel Technician Mechanic Filed: 05/21/131641 Date of Service: 05/21/131641 Status: Signed Pellet Press Operator: OLIVIA Cox (Diesel Technician Mechanic) CM met with Sherry KHOURY ([phone]) in her room. MOB stated she felt good enough to talk with me. FOB's name is Stone Dao. MOB and FOB reside together at [address] [place] [address]. MOB's 9 yo boy also resides with [...] carseat yet. CM informed MOB of $30 [facility] carseat. CM left name and number on NICU packet and encouraged MOB to cont act CM if any needs arise. OLIVIA Cox Blaise Hernandez MD - 05/20/2013 9:28 PM PDT Progress Notes by Blaise Bryson MD at 05/20/132127 Author: Blaise Byrson MD Service: Obstetrics/Gynecology Author Type: Physician Filed: 05/20/132134 Date of Service: 05/20/132127 Status: Signed Pellet Press Operator: Blaise Bryson MD (Physician) [facility] Service: Obstetrics & Gynecology Antepartum Progress [...] At | + + + | CASE: [id number] PATIENT: SHERRY TESFAYE Surgical Pathology | EXTERNAL [...] | | comprised of pink-mckeon spongy parenchyma. Digital Developer sections of | | | the specimen are submitted as follows: Cassette Summary: (A1) | | | cord and membranes; (A2) visitor services representative full thickness section to | | | include a visitor services representative section of the described mckeon-brown [...] | Testing performed at | | | [facility];[address] [facility];[place] [address] CULTURE | | | NO GROWTH | | | Testing performed at [facility], [address] [facility], | | | [place] [address] REPORT STATUS | | | 05/21/2013 FINAL [...]
--- OUTSIDE RECORDS SUMMARY | ~2020-01-29 | XMS | Encounter Summary ---
Demographics + + + | Address | [address] | | | [place] [address] | + + + | Home Phone | | + + + | Preferred Language | Unknown | + + + | Marital Status | | + + + | Roman Catholic Affiliation | Unknown | + + + | Race | Unknown | + + + | Ethnic Group | Unknown | + + + Author + + + | Author | [facility] | | | and [place] | + + + | Organization | [facility] | [...] | [place] | | | | | [address] | | + + + + + Care Team Providers + +------+ + | Care Nuclear Logging Engineer Name | Role | Phone | + [...] [place], | | | | | [facility] [place] | [address], | | | | | [address] | [place] [address] | | | | | [phone] | [phone] | | | | | | | [...] | | mmHg TR Vmax: 2.01 m/s Political Science Instructor: LYLE Authenticated by: | | | LIOR [...] cmLVPWd: 0.81 cmLVOT Area: | | 4.08 [id number] Diam: 2.28 cm%FS: 31.88 %EF(Teich): 59.56 %ESV(Teich): [...] mlLAESV Index (A-L): 24.93 ml/m2LAAs A2C: 17.48 [id number] A-L A2C: 56.59 mlLALs | | A2C: 4.58 cmLAAs A4C: 17.33 pq0TGXKF A-L A4C: 49.53 mlLALs A4C: 5.14 cmAo Diam: | | 2.99 cmLA Diam: 3.93 cmLA/Ao: 1.31AV maxP.42 mmHgAV meanP.05 mmHgAV | | Vmax: 1.45 m/Samara Vmean: 0.91 m/Samara VTI: 24.77 cmAVA Vmax: 2.71 cm2AVA (VTI): | | 3.01 oq7KABS (Vmax): 0.00 cm2/m2AVAI (VTI): 0.00 cm2/m2LVOT maxP.71 mmHgLVOT | | meanP.17 mmHgLVSI Dopp: 33.22 ml/m2LVSV Dopp: 74.75 mlLVOT Vmax: 0.96 | | m/sLVOT Vmean: 0.70 m/sLVOT VTI: 18.28 cmMV A Stephen: 0.62 m/sMV DecT: 149.50 msMV | | E Stephen: 0.96 m/sMV E/A Ratio: 1.52MV PHT: 43.35 msMVA By PHT: 5.07 fw9Qnqdrp e': | | 0.10 m/sSeptal E/e': 9.32RAP: 5 mmHgRVSP: 21.16 mmHgTR maxP.16 mmHgTR | | Vmax: 2.01 m/s Political Science Instructor: ROBERTuthenticated by: LIOR Meredith Date/Time: | | [...] |TR Vmax: 2.01 m/s | | | |Political Science Instructor: | |Authenticated by: LIOR CUELLAR MD | |Report Date/Time: 11-12-2015 16:17:44 | | | |IMPRESSION: | |1. Essentially normal study. | + + documented in this encounter Visit Diagnoses Not on filedocumented in this encounter"
[~2020-01-29 17:18] MED LIST changes: +ELIQUIS5 MG PO
== END 2020-01-29 17:25 | disposition left against medical advice (07) ==
LOC: ED 17:18
DX: Z53.21 Procedure and treatment not carried out due to patient leaving prior to being seen by health care provider (principal)

== ENCOUNTER 2020-03-07 13:09 | Emergency (ER) | payer BC ==
[~2020-03-07] VITALS: Ht 172.7 cm; Wt 99.8 kg
--- OUTSIDE RECORDS SUMMARY | ~2020-03-07 | XMS | Encounter Summary ---
Demographics + + + | Address | [address] | | | [place] [address] | + + + | Home Phone | | + + + | Preferred Language | Unknown | + + + | Marital Status | | + + + | Mandaen Affiliation | Unknown | + + + | Race | Unknown | + + + | Ethnic Group | Unknown | + + + Author + + + | Author | [facility] | | | and [place] | + + + | Organization | [facility] | | | and [place] | + + + | Address | Unknown | + + + | Phone | Unavailable | + + + Support + + + + + | Name | Relationship | Address | Phone | + + + + + | Paulino Soni | ECON | [address] | | | | | [place] | | | | | [address] | | + + + + + Care Team Providers + +------+ + | [facility] Name | Role | Phone | + +------+ + | No, Physician | PCP | Unavailable | + +------+ + Reason for Visit + + + | Reason | Comments | + + + | Slurred Speech | | + + + | Possible Seizure | | + + + Encounter Details +--------+ + + + + | Date | Type | Department | Care Team | Description | +--------+ + + + + | 02/17/ | Emergency | [facility] | Mimi Denise MD | Anxiety attack | | 2018 | | [facility] | [address] | (Primary Dx); | | | | [place] [address] | [place] [address] | Psychiatric | | | | [place], [place] | [phone] | pseudoseizure | | | | [address] | | | | | | [phone] | | | +--------+ + + + + Social History + + + +--------+------+ | Tobacco Use | Types | Packs/Day | Years | Date | | | | | Used | | + + + +--------+------+ | Current Every Day | Cigarettes | | | | | Smoker | | | | | + + + +--------+------+ + +---+---+---+ | Smokeless Tobacco: | | | | | Never Used | | | | + +---+---+---+ + + +---------+ + | Alcohol Use | Drinks/Week | oz/Week | Comments | + + +---------+ + | Yes | 1 Shots of liquor | 1.0 | " twice a month" | + + +---------+ + + + + | Sex Assigned at | Date Recorded | | | | + + + | Not on file | | + + + + + + + | Job Start Date | Occupation | Industry | + + + + | Not on file | Not on file | Not on file | + + + + + + + + | Travel History | Travel Start | Travel End | + + + + + + | No recent travel history available. | + + documented as of this encounter Last Filed Vital Signs + + + + + | Vital Sign | Reading | Time Taken | Comments | + + + + + | Blood Pressure | 131/65 | 02/17/2018 5:29 PM | | | | | PDT | | + + + + + | Pulse | 72 | 02/17/2018 6:02 PM | | | | | PDT | | + + + + + | Temperature | 37.1 C (98.7 F) | 02/17/2018 4:49 PM | | | | | PDT | | + + + + + | Respiratory Rate | 21 | 02/17/2018 6:02 PM | | | | | PDT | | + + + + + | Oxygen Saturation | 99% | 02/17/2018 6:02 PM | | | | | PDT | | + + + + + | Inhaled Oxygen | - | - | | | Concentration | | | | + + + + + | Weight | 113.4 kg (250 lb) | 02/17/2018 4:49 PM | | | | | PDT | | + + + + + | Height | 172.7 cm (5' 8") | 02/17/2018 4:49 PM | | | | | PDT | | + + + + + | Body Mass Index | 38.01 | 02/17/2018 4:49 PM | | | | | PDT | | + + + + + documented in this encounter Discharge Instructions Instructions Mimi Denise MD - 02/17/2018You were evaluated in the ED today for a possib le seizure and were found to have an anxiety attack and likely a psychiatric pseudoseizure d ue to emotional stress. You should manage your stress with breathing techniques and medicati ons as needed. Follow up with your regular doctor or psychiatrist to further manage your sym ptoms. AttachmentsThe following attachments cannot be sent through Care Everywhere.Anxiety, Your B ady's Response to ([place])documented in this encounter Medications at Time of Discharge + + + +---------+--------+ + | Medication | Sig | Dispensed | Refills | Start | End Date | | | | | | Date | | + + + +---------+--------+ + | busPIRone (BUSPAR) | Take 5 mg by mouth 3 | | 0 | | | | 5 mg tablet | times daily. | | | | | + + + +---------+--------+ + | clonazePAM | Take 0.5 mg by mouth | | 0 | | | | (KLONOPIN) 0.5 mg | nightly. | | | | | | tablet | | | | | | + + + +---------+--------+ + | DULoxetine | Take 30 mg by mouth | | 0 | | | | (CYMBALTA) [address] | Daily. | | | | | | capsule | | | | | | + + + +---------+--------+ + | prazosin | Take 2 mg by mouth | | 0 | | | | (MINIPRESS) 2 MG | nightly. | | | | | | capsule | | | | | | + + + +---------+--------+ + documented as of this encounter Plan of Treatment + +------+--------+ + + | Name | Type | Priori | Associated Diagnoses | Date/Time | | | | ty | | | + +------+--------+ + + | ED INFORMATION | CHRIS | Routin | | 02/17/2018 6:19 PM | | EXCHANGE | | e | | PDT | + +------+--------+ + + documented as of this encounter Visit Diagnoses + + | Diagnosis | + + | Anxiety attack - Primary Panic disorder without agoraphobia | + + | Psychiatric pseudoseizure Conversion disorder | + + documented in this encounter Administered Medications + +--------+ +------+------+ + | Medication Order | MAR | Action | Dose | Rate | Site | | | Action | Date | | | | + +--------+ +------+------+ + | haloperidol lactate (HALDOL) | Given | 02/18/20 | 5 mg | | Glut-Rig | | injection 5 mg 5 mg, | | 18 5:06 | | | ht | | Intramuscular, ONCE, 02/17/18 | | PM PDT | | | | | at 1700, For 1 dose | | | | | | + +--------+ +------+------+ + +---+---+ | | | +---+---+ + +-------+ +-------+---+ + | ketorolac (TORADOL) injection | Given | 02/18/20 | 15 mg | | Deltoid- | | 15 mg 15 mg, Intramuscular, | | 18 5:20 | | | Right | | ONCE, Nicky 02/17/18 at 1715, For 1 | | PM PDT | | | | | dose | | | | | | + +-------+ +-------+---+ + +---+---+ | | | +---+---+ documented in this encounter
--- OUTSIDE RECORDS SUMMARY | ~2020-03-07 | XMS | Encounter Summary ---
Demographics + + + | Address | [address] | | | [place] [address] | + + + | Home Phone | | + + + | Preferred Language | Unknown | + + + | Marital Status | | + + + | Muslim Affiliation | Unknown | + + + | Race | Unknown | + + + | Ethnic Group | Unknown | + + + Author + + + | Author | [facility] | | | and [place] | + + + | Organization | [facility] | | | and [place] [...] [place], [place] | | | | | [address] | | + + + + + Care Team Providers + +------+ + | Care Work Environment Safety Inspector Name | Role | Phone | + +------+ + PCP | Unavailable | + +------+ + Encounter Details +--------+ + + + + | Date | Type | Department | Care Team | Description | +--------+ + + + + | 05/19/ | [facility] | [facility] | [place], | | | 2013 - | Encounter | CENTER SUR[facility] [address] | Blaise Bradley MD [address] | | | | | [address] | [address] | | | 05/24/ | | [place], [place] | [place] [address] | | | 2012 | | [address] | [phone] | | | | | [phone] | | | +--------+ + + + [...] + + documented as of this encounter Discharge Summaries Blaise Bryson MD - 05/24/2013 6:51 PM PDTFormatting of this note might be differe nt from the original. Discharge Summaries by Blaise Bryson MD at 05/24/131850 Author: Blaise Bryson MD Service: Obstetrics/Gynecology Author Type: Physician Filed: 05/26/13 0608 Date of Service: 05/24/131850 Status: Signed Product Support Sales Representative: Blaise Bryson MD (Physician) Related Notes: Original Note by Blaise Bryson MD (Physician) filed at 05/24/131854 [facility] Service: Obstetrics & Gynecology Discharge Summary Date of Admission: 05/19/2013 Date of Discharge: 05/21/2013 Discharge Provider: BLAISE RBYSON MD Treatment Team: Admitting Provider: Blaise Bryson MD Discharge Diagnoses: Active Problems: * No active hospital problems. * Resolved Problems: * No resolved hospital problems. * Final Diagnoses: Post op LTCS/Severe preeclampsia Procedures: Procedure(s) with comments: PRIMARY SECTION Significant Diagnostic Studies: none BRIEF HISTORY OF PRESENTATION: Sherry Tesfaye is a 27 y.o. female at 30 and 1/7 weeks gestation who is being ad mitted for IUGR with evidence of HTN. Her current obstetrical history is significant for obe sity. Patient reports backache. Movement: normal. HOSPITAL COURSE: The patient was admitted to [facility] where she was placed on the antepartum unit with hypertension and IUGR. A 24-hour urine obtained revealing 4.4 g protei n. Consultation was had with Dr. Terarzas. Recommendation made to proceed with delivery giv en evidence of severe preeclampsia with evidence of IUGR. [facility] she underwent primary low transverse section with delivery f rom the breech presentation of a viable female infant weighing 2 pounds, 2.4 ounces (975 g) with scores of 7, 8 and 8 at one, five, and ten minutes. Surgery proved to be extremel y complex due to morbid obesity and difficulty with visualization delivery. Estimate d blood loss was 1000 mL. For the details regarding the patient's operative procedure please see dictation performed by Dr. Bryson. The patient then had a relatively normal /postoperative course. The patient's mag nesium sulfate was weaned off on postoperative day number 2. On postoperative day number 3 t he patient was requesting discharge home. The patient's blood pressure had remained stable. Labetalol 200 mg p.o. b.i.d. as well as Lasix 20 mg p.o. daily. Decision then made to discha rge the patient home. At that time the incision was healing well with subcutaneous sutures a nd Steri-Strips in place, as well as Aquacel dressing. In addition, the patient had no lochi a and pain was under adequate control with analgesics. Routine postoperative, and preeclampsia warning precautions were given prior to discharge. Past Medical History Diagnosis Date Hypertension Past Surgical History Procedure Date Appendectomy patient was 15 yrs old Tonsillectomy patient was 16 yrs old section, low transverse 05/21/2013 Procedure: PRIMARY SECTION; Surgeon: Blaise Bryson MD; Location: [facility] L& D; Service: SOFTWARE RECRUITER; Laterality: N/A; Allergies Allergen Reactions Azithromycin Rash No prescriptions prior to admission DISCHARGE EXAM Vital Signs: BP 154/79 | Pulse 68 | Temp 98.3 F (36.8 C) (Oral) | Resp 16 | Wt 109.226 kg (240 lb 12 .8 oz) | SpO2 96% | ? Yes Temp: [98.3 F (36.8 C)-98.7 F (37.1 C)] 98.3 F (36.8 C) (05/24 1117) BP: (142-174)/(74-86) 154/79 mmHg (05/24 111) Heart Rate: [58-88] 68 (05/24 111) Resp: [16-18] 16 (05/24 111) SpO2: [96 %] 96 % (05/24 1117) Physical Exam Deferred DATA CBC: Lab Results Component Value Date WBC 16.3* 05/24/2013 RBC 3.23* 05/24/2013 HGB 10.1* 05/24/2013 HCT 30.5* 05/24/2013 MCV 94.3 05/24/2013 MCH 31.3 05/24/2013 MCHC 33.2 05/24/2013 RDW 47.3 05/24/2013 PLT 153 05/24/2013 MPV 8.9 05/24/2013 PLAN Patient Active Hospital Problem List: No active hospital problems. Disposition: Home Condition: Stable Code Status: Full Code No discharge procedures on file. Follow up: Blaise Bryson MD [address] [address] Schedule an appointment as soon as possible for a visit on 05/29/2013 Kulwant Bailey MD [address] [facility] [place] [address] Schedule an appointment as soon as possible for a visit in 6 weeks Discharge Medication List as of 05/24/2013 2:38 PM START taking these medications Details docusate sodium (COLACE) 100 MG capsule Take 1 capsule by mouth daily., Starting 05/24/2013 , Until 05/24/14, Print furosemide (LASIX) 20 MG tablet Take 1 tablet by mouth daily., Starting 05/24/2013, Until S un 05/24/14, Print ibuprofen (ADVIL,MOTRIN) 600 MG tablet Take 1 tablet by mouth every 6 (six) hours as neede d for Pain., Starting 05/24/2013, Until Sun06/03/13, Print labetalol (NORMODYNE) 200 MG tablet Take 1 tablet by mouth 2 (two) times daily., Starting 05/24/2013, Until Sun05/24/14, Print Misc. Devices (BREAST PUMP) Pump every 3 hours x 15 minutes as needed., Print oxyCODONE (ROXICODONE) 5 MG immediate release tablet Take 1 tablet by mouth every 4 (four) hours as needed for Pain., Starting 05/24/2013, Until Sun06/03/13, Print potassium chloride (K-DUR) 10 MEQ tablet Take 1 tablet by mouth 2 (two) times daily., Star ting 05/24/2013, Until Sun05/24/14, Print CONTINUE these medications which have NOT CHANGED Details Multiple Vitamin (MULTIVITAMIN) tablet Take 1 tablet by mouth daily., Until Discontinued, Historical Med STOP taking these medications vcfpwmjldp-zwlcmfzhycnee-juucyxdq (FIORICET WITH CODEINE) [id number] MG per capsule Com ments: Reason for Stopping: Discharge took 11 minutes, to include final examination, discussion of admission, and prepa ration of prescriptions, instructions for on-going care, follow-up and documentation of disc harge summary. BLAISE BRYSON MD 05/24/2013 Blaise Delong MD - 05/24/2013 6:48 PM PDTFormatting of this note might be different from th e original. Discharge Summaries by Blaise Bryson MD at 05/24/131847 Author: Blaise Bryson MD Service: Obstetrics/Gynecology Author Type: Physician Filed: 05/24/131850 Date of Service: 05/24/131847 Status: Signed Product Support Sales Representative: Blaise Bryson MD (Physician) Obstetrical Discharge Form Primary OB Clinician: Dr. Monk EDC: Estimated Date of Delivery: 07/27/13 Gestational Age:30w3d Antepartum complications: intrauterine growth restriction and severe preeclampsia Date of Delivery: 05/21/2013 ; Time of Delivery: 901 Delivered By: BLAISE BRYSON ;Collaborating MD-Dr. Alexandra Delivery Type: primary section, low transverse incision and indication: m alpresentation: Breech and severe preeclampsia Tubal Ligation: n/a Baby: Liveborn female, Apgars 7/8/8, weight 2 #, 2.4 oz, Anesthesia: spinal Intrapartum complications: IUGR Laceration: none Episiotomy: none, Placenta: spontaneous Feeding method: breast and bottle Rh Immune globulin given: yes Rubella vaccine given: no Discharge Date: 05/24/2013; Discharge Time: 1500 Early Discharge: NO Plan: Address and phone number verified and same. Follow-up appointment with Matthew in 1 week. documente d in this encounter Progress Notes Conversion Transaction, Provider Unknown - 05/24/2013 2:55 PM PDTFormatting of this note m ight be different from the original. Progress Notes by Carlota Henry RN at 05/24/131454 Author: Carlota Henry RN Service: (none) Author Type: Registered Nurse Filed: 05/24/131456 Date of Service: 05/24/131454 Status: Signed Product Support Sales Representative: Carlota Henry RN (Registered Nurse) Patient given discharge instructions, along with prescriptions. All questions answered, VSS , denies pain, all belongings sent with patient. Carlota Henry RN Blaise Hernandez MD - 05/23/2013 10:27 PM PDT Progress Notes by Blaise Bryson MD at 05/23/132226 Author: Blaise Bryson MD Service: Obstetrics/Gynecology Author Type: Physician Filed: 05/23/132228 Date of Service: 05/23/132226 Status: Signed Product Support Sales Representative: Blaise Bryson MD (Physician) [facility] Service: Obstetrics & Gynecology C/S Progress Note Hospital Day: 5 Post-Op Day: 2 Days Post-Op Procedure: Procedure(s) with comments: PRIMARY SECTION SUBJECTIVE The patient feels tired. Pain is well controlled with current medications. The patient is a mbulating well. The patient is tolerating a normal diet. Urinary output is adequate. Flatus has been passed. The baby is ill. Patient is breast and bottle feeding. Scheduled Medications docusate sodium 100 mg Oral BID furosemide 20 mg Oral Daily labetalol 200 mg Oral Q12H ERIKA potassium chloride 10 mEq Oral BID WC scopolamine 1 patch Transdermal Q72H simethicone 80 mg Oral 4x Daily DISCONTD: labetalol 100 mg Oral Q12H ERIKA Continuous Infusions lactated ringers oxytocin PRN Medications acetaminophen, dibucaine, diphenhydrAMINE, diphenhydrAMINE, HYDROmorphone, ibuprofen, lacta sharifa ringers, lanolin, magnesium hydroxide, naloxone, ondansetron, ondansetron, ondansetron, oxyCODONE, oxyCODONE, sodium chloride, witch han-glycerin, zolpidem OBJECTIVE Vital Signs: BP 159/78 | Pulse 74 | Temp 98 F (36.7 C) (Oral) | Resp 18 | Wt 109.226 kg (240 lb 12.8 oz) | SpO2 98% | ? Yes General: alert, appears stated age and cooperative Bowel Sounds: active Uterine Fundus: firm Incision: healing well, no significant drainage, no dehiscence, no significant erythema Lochia: appropriate Extremities: 1+ bilateral pedal edema DATA CBC: Lab Results Component Value Date WBC 17.7* 05/23/2013 RBC 3.24* 05/23/2013 HGB 10.2* 05/23/2013 HCT 30.7* 05/23/2013 MCV 95.0 05/23/2013 MCH 31.5 05/23/2013 MCHC 33.2 05/23/2013 RDW 48.1 05/23/2013 PLT 145* 05/23/2013 MPV 9.5 05/23/2013 PROBLEM LIST Active Problems: * No active hospital problems. * ASSESSMENT & PLAN Patient Active Hospital Problem List: No active hospital problems. Status post section. Doing well postoperatively. Continue current care. Increase labetalol 200 mg bid. BLAISE BRYSON MD 05/23/2013 Blaise Delong MD - 05/22/2013 11:18 PM PDTFormatting of this note might be different from th e original. Progress Notes by Blaise Bryson MD at 05/22/132317 Author: Blaise Bryson MD Service: Obstetrics/Gynecology Author Type: Physician Filed: 05/22/13 5429 Date of Service: 05/22/132317 Status: Signed Product Support Sales Representative: Blaise Bryson MD (Physician) [facility] Service: Obstetrics & Gynecology C/S Progress Note Hospital Day: 4 Post-Op Day: 1 Day Post-Op Procedure: Procedure(s) with comments: PRIMARY SECTION SUBJECTIVE The patient feels tired. Pain is well controlled with current medications. The patient is a mbulating well. The patient is tolerating a normal diet. Urinary output is adequate. Flatus has been passed. The baby is ill. Patient is breast and bottle feeding. Scheduled Medications acetaminophen 1,000 mg Oral Q6H docusate sodium 100 mg Oral BID labetalol 100 mg Oral Q12H ERIKA scopolamine 1 patch Transdermal Q72H simethicone 80 mg Oral 4x Daily DISCONTD: ketorolac 30 mg Intravenous Q6H DISCONTD: lidocaine buffered 1% 0.5 mL Subcutaneous Once DISCONTD: sodium chloride 10 mL Intravenous Q8H Continuous Infusions lactated ringers oxytocin DISCONTD: lactated ringers 110 mL/hr at 05/21/13 1513 DISCONTD: magnesium sulfate in LR 40g/1000mL 1 g/hr (05/20/136) PRN Medications acetaminophen, dibucaine, diphenhydrAMINE, diphenhydrAMINE, HYDROmorphone, ibuprofen, lacta sharifa ringers, lanolin, magnesium hydroxide, nalbuphine, naloxone, ondansetron, ondansetron, o ndansetron, oxyCODONE, oxyCODONE, oxyCODONE, oxyCODONE, sodium chloride, sodium chloride, so dium phosphate, witch han-glycerin, zolpidem, DISCONTD: calcium gluconate, DISCONTD: lacta sharifa ringers, DISCONTD: lactated ringers OBJECTIVE Vital Signs: BP 152/82 | Pulse 70 | Temp 97.9 F (36.6 C) (Oral) | Resp 18 | Wt 109.226 kg (240 lb 12 .8 oz) | SpO2 98% | ? Yes General: alert, appears stated age and cooperative Bowel Sounds: active Uterine Fundus: firm Incision: healing well, no significant drainage, no dehiscence, no significant erythema Lochia: appropriate Extremities: 1+ bilateral pedal edema DATA CBC: Lab Results Component Value Date WBC 21.2* 05/22/2013 RBC 3.34* 05/22/2013 HGB 10.0* 05/22/2013 HCT 31.2* 05/22/2013 MCV 93.4 05/22/2013 MCH 30.0 05/22/2013 MCHC 32.1 05/22/2013 RDW 46.8 05/22/2013 PLT 176 05/22/2013 MPV 10.2 05/22/2013 BUN/Creatinine: Lab Results Component Value Date BUN 15 05/22/2013 CREATININE 0.61 05/22/2013 LDH: Lab Results Component Value Date LDH 247* 05/22/2013 Uric Acid: Lab Results Component Value Date URICACID 6.2 05/22/2013 PROBLEM LIST Active Problems: * No active hospital problems. * ASSESSMENT & PLAN Patient Active Hospital Problem List: No active hospital problems. Status post section. Doing well postoperatively. Continue current care. BLAISE BRYSON MD 05/22/2013 onversio n Transaction, Provider Unknown - 05/21/2013 4:42 PM PDTFormatting of this note might be di fferent from the original. Case Management by OLIVIA Cox at 05/21/131641 Author: OLIVIA Cox Service: (none) Author Type: Software Computer Specialist Filed: 05/21/131641 Date of Service: 05/21/131641 Status: Signed Product Support Sales Representative: OLIVIA Cox (Software Computer Specialist) CM met with Sherry KOHURY ([phone]) in her room. MOB stated she felt good enough to talk with me. FOB's name is Stone Dao. MOB and FOB reside together at [address] [place] [address]. MOB's 9 yo boy also resides with them. Baby girl, Daphne Dao, is a 975 gram product of a 30 3/7 week gestation born via C- Section, Low Transverse footling breech presentation to a 27 year old G 2, P 1. co mplicated by PIH and IUGR, she was followed by maternal medicine. Maternal history is remarkable for past drug history Methamphetamine 1 1/2 years ago. Mother smokes 4-5 cigarett es per day. It does not appear that a UA was done on MOB. There is an order for a Cordstat p ending for baby. MOB plans on and has a pump in her room. MOB is on "workers comp" and FOB works and will have some time off of work when baby comes home. The family has a car and CM has sent over a referral to [employer]. MOB gi ve instructions on how to screen in and apply for gas assistance. MOB would like to visit maritza thomson upon her d/c. MOB stated she has a Hx of depression. CM educated MOB re PPD and gave MOB written informat ion re PPD. CM encouraged MOB to talk with her PPC or OB if symptoms occur. MOB is currently receiving Medical assistance from [employer]. MOB stated that her son also qualif ies for lunch assistance. CM encouraged MOB to contact [employer] to inform them baby was born. CM educated MOB on SSI. MOB signed KARLOS. CM will acquire the appropriate paperwork and fax/m ail application tomorrow. MOB stated that they have a crib at home, but have not acquired a carseat yet. CM informed MOB of $30 [facility] carseat. CM left name and number on NICU packet and encouraged MOB to cont act CM if any needs arise. OLIVIA Cox Blaise Hernandez MD - 05/20/2013 9:28 PM PDT Progress Notes by Blaise Bryson MD at 05/20/132127 Author: Blaise Bryson MD Service: Obstetrics/Gynecology Author Type: Physician Filed: 05/20/132134 Date of Service: 05/20/132127 Status: Signed Product Support Sales Representative: Blaise Bryson MD (Physician) [facility] Service: Obstetrics & Gynecology Antepartum Progress Note Hospital Day: 2 SUBJECTIVE The patient is a 27 y.o. female at 30w2d admitted for Pre-eclampsia. Patient denies a ny headaches, visual changes, RUQ pain, visual changes, uterine contractions, vaginal bleedi ng or loss of fluid and notes positive movement. Scheduled Medications betamethasone acetate-betamethasone sodium phosphate 12 mg Intramuscular Once betamethasone acetate-betamethasone sodium phosphate 12 mg Intramuscular Once docusate sodium 100 mg Oral Daily labetalol 100 mg Oral Q12H ERIKA lidocaine buffered 1% 0.5 mL Subcutaneous Once lidocaine buffered 1% 0.5 mL Subcutaneous Once lidocaine buffered 1% 0.5 mL Subcutaneous Once magnesium sulfate 4 g Intravenous Once sodium chloride 10 mL Intravenous Q8H sodium chloride 10 mL Intravenous Q8H sodium chloride 10 mL Intravenous Q8H Continuous Infusions lactated ringers lactated ringers lactated ringers magnesium sulfate in LR 40g/1000mL PRN Medications acetaminophen, calcium carbonate, calcium gluconate, diphenhydrAMINE, lactated ringers, lac tated ringers, lactated ringers, lactated ringers, lactated ringers, lactated ringers, magne sium hydroxide, ondansetron, zolpidem OBJECTIVE Vital Signs: BP 155/75 | Pulse 79 | Temp 98.8 F (37.1 C) (Oral) | Resp 18 | Wt 109.226 kg (240 lb 12 .8 oz) | SpO2 93% | ? Yes General: alert, appears stated age and cooperative Fundal Height: size less than dates FHT: Baseline FHR: 150 beats per minute TOCO: none Cervical Exam: Deferred York Score: Deferred Gen: Well appearing gravid female in NAD. Chest: Bilateral CTA. Abd: Gravid, soft an NT. Obese. Ext: Soft, NT, 2 plus bilateral lower extremity edema. DATA CBC: Lab Results Component Value Date WBC 14.7* 05/20/2013 RBC 4.23 05/20/2013 HGB 12.7 05/20/2013 HCT 38.8 05/20/2013 MCV 91.9 05/20/2013 MCH 30.0 05/20/2013 MCHC 32.7 05/20/2013 RDW 45.5 05/20/2013 PLT 180 05/20/2013 MPV 10.7 05/20/2013 BUN/Creatinine: Lab Results Component Value Date BUN 16 05/20/2013 CREATININE 0.62 05/20/2013 LDH: Lab Results Component Value Date LDH 215 05/20/2013 Uric Acid: Lab Results Component Value Date URICACID 7.3* 05/20/2013 24 Hour Urine for Protein: Lab Results Component Value Date UTPB 309 05/20/2013 TPU 4480.5* 05/20/2013 PROBLEM LIST Active Problems: * No active hospital problems. * ASSESSMENT & PLAN Assessment: Preeclampsia Plan: Primary Low Transverse Section Intervention: plan delivery and will proceed with Magnesium Sulfate for seizure pr ophylaxis. Case discussed with Dr. Terrazas from medicine. Recommendation made to proceed with LTCS in AM. Place patient on NPO after midnight diet. Risks of LTCS reviewed a nd written consent obtained. BLAISE BRYSON MD 05/20/2013 documente d in this encounter Plan of Treatment Not on filedocumented as of this encounter Procedures + +--------+ + + + | Procedure Name | Priori | Date/Time | Associated Diagnosis | Comments | | | ty | | | | + +--------+ + + + | TISSUE REQUEST FOR | Routin | 05/21/2013 | | Results for this | | PATHOLOGY (NON-ORD) | e | 12:00 AM | | procedure are in the | | | | PDT | | results section. | + +--------+ + + + | CULTURE, URINE | Routin | 05/20/2013 | | Results for this | | | e | 6:09 PM | | procedure are in the | | | | PDT | | results section. | + +--------+ + + + documented in this encounter Results Tissue Request For Pathology (05/21/2013 12:00 AM PDT) + + | Specimen | + + | Soft tissue sample | | (specimen) | + + + + + | Narrative | Performed At | + + + | CASE: [id number] PATIENT: SHERRY TESFAYE Surgical Pathology | EXTERNAL LAB | | Report PATHOLOGIC DIAGNOSIS: PLACENTA (472 GRAMS), UMBILICAL | | | CORD AND MEMBRANES: - PLACENTAL WEIGHT: APPROXIMATELY | | | >97TH PERCENTILE FOR GESTATIONAL AGE. - CHORIONIC VILLI WITH o | | | APPROPRIATE MATURATION FOR GESTATIONAL AGE. o FOCAL | | | MICROCALCIFICATIONS. o VILLOUS INFARCTION COMPRISING LESS THAN | | | 10% OF PLACENTAL VOLUME. o NO EVIDENCE OF TROPHOBLASTIC DISEASE. | | | - THREE-VESSEL UMBILICAL CORD WITHOUT PATHOLOGIC ABNORMALITY. | | | - MEMBRANES WITH NO PATHOLOGIC ABNORMALITY. - NO | | | EVIDENCE OF AN INFECTIOUS OR INFLAMMATORY PROCESS. TWK:kmk:[id number] | | | CLINICAL HISTORY: 05/21/2013 at 0902 H. Mother's age: 27, OB | | | history: P: 2 A: - (spont/elect). Gestation age: 30+3, 's | | | weight: 975 grams, score: 7/8, Rh: O- (Rhogam yes/no), Rubella: | | | , RPR: . Specific Issues of Concern: Severe preeclampsia. GROSS | | | DESCRIPTION: Received fresh in one container labeled "Mera, | | | Sherry" and "Placenta" consists of a 472 gram ovoid kilpatrick | | | placenta, weighed without cord and membranes, that measures 13.2 x | | | 7.5 x 1.9 cm overall. The specimen is received with a trivascular | | | umbilical cord 13.5 cm in length with an average diameter of 0.7 cm. | | | The umbilical cord inserted paracentrally 1.7 cm from the nearest | | | placental rim. The membranes are mckeon-brown and smooth. The | | | surface is blue-cerna and displays prominent vasculature. The | | | maternal surface is focally fragmented, although appears grossly | | | complete. Sectioning reveals a mckeon-brown, peripherally located nodule | | | that measures 3.7 x 3.4 x 1.5 cm. This nodule comprises less than | | | 10% of the entire placental volume. The remainder of the specimen | | | comprised of pink-mckeon spongy parenchyma. Child And Youth Program Assistant sections of | | | the specimen are submitted as follows: Cassette Summary: (A1) | | | cord and membranes; (A2) outbound call center representative full thickness section to | | | include a outbound call center representative section of the described mckeon-brown | | | peripheral nodule; (A3) an additional full thickness section of the | | | placenta. pf:owen MICROSCOPIC EXAMINATION: Histologic sections | | | of all submitted blocks are examined by light microscopy. These | | | findings, together with the gross examination, support the pathologic | | | diagnosis. Harry Jimenez MD Electronically signed May 29 | | | 2012 8:51:23AM | | + + + + +---------+ + + | Performing | Address | City/State/Zipcode | Phone Number | | Organization | | | | + +---------+ + + | EXTERNAL LAB | | | | + +---------+ + + Culture, Urine (05/20/2013 6:09 PM PDT) + + | Specimen | + + | Urine specimen | | (specimen) | + + + + + | Narrative | Performed At | + + + | Specimen Description CLEAN CATCH URINE | EXTERNAL LAB | | Testing performed at | | | [facility];[address] [facility];[place] [address] CULTURE | | | NO GROWTH | | | Testing performed at [facility], [address] [facility], | | | [place] [address] REPORT STATUS | | | 05/21/2013 FINAL | | + + + + +---------+ + + | Performing | Address | City/State/Zipcode | Phone Number | | Organization | | | | + +---------+ + + | EXTERNAL LAB | | | | + +---------+ + + documented in this encounter Visit Diagnoses Not on filedocumented in this encounter
--- OUTSIDE RECORDS SUMMARY | ~2020-03-07 | XMS | Encounter Summary ---
Demographics + + + | Address | [address] | | | [place] [address] | + + + | Home Phone | | + + + | Preferred Language | Unknown | + + + | Marital Status | | + + + | Holiness Affiliation | Unknown | + + + | Race | Unknown | + + + | Ethnic Group | Unknown | + + + Author + + + | Author | [facility] | | | and [place] | + + + | Organization | [facility] | | | and [...] [place], [place] | | | | | [address] | | + + + + + Care Team Providers + +------+ + | Care Early Childhood Aide Classroom Name | Role | Phone | + +------+ + PCP | Unavailable | + +------+ + Encounter Details +--------+ + + + + | Date | Type | Department | Care Team | Description | +--------+ + + + + | 05/19/ | [facility] | [facility] | [place], | | | 2013 - | Encounter | CENTER SURGICAL [address] | Blaise Bradley MD [address] | | | | | [address] | [address] | | | 05/24/ | | [place], [place] | [place] [address] | | | 2012 | | [address] | [phone] | | | | | [phone] | | | +--------+ + + + [...] 0608 Date of Service: 05/24/131850 Status: Signed Consultant Dietitian: Blaise Bryson MD (Physician) Related Notes: Original Note by Blaise Bryson MD (Physician) filed at 05/24/131854 [facility] Service: Obstetrics & Gynecology Discharge Summary Date of Admission: 05/19/2013 Date of Discharge: 05/21/2013 Discharge Provider: BLAISE BRYSON MD Treatment Team: Admitting Provider: Blaise Bryson [...] HOSPITAL COURSE: The patient was admitted to [facility] where she was placed on the antepartum unit with hypertension and IUGR. A 24-hour urine obtained revealing 4.4 g protei n. Consultation was had with Dr. Terrazas. Recommendation made to proceed with delivery giv en evidence of severe preeclampsia with evidence of IUGR. 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; Laterality: N/A; Allergies Allergen Reactions Azithromycin Rash [...] up: Blaise Bryson MD [address] [address] Schedule an appointment as soon as possible for a visit on 05/29/2013 Kulwant Bailey MD [address] [facility] [place] [address] Schedule an appointment as soon as possible [...] Discontinued, Historical Med STOP taking these medications khdynuzenn-rwzjrhjnjjwmd-xhcjjmif (FIORICET WITH CODEINE) [id number] MG per capsule Com ments: Reason for [...] 05/24/131850 Date of Service: 05/24/131847 Status: Signed Consultant Dietitian: Blaise Bryson MD (Physician) Obstetrical Discharge Form [...] 05/24/131456 Date of Service: 05/24/131454 Status: Signed Consultant Dietitian: Carlota Henry RN (Registered Nurse) Patient given discharge instructions, along with prescriptions. All questions answered, VSS , denies pain, all belongings sent with patient. Carolta Henry RN Blaise Hernandez MD - 05/23/2013 10:27 PM PDT Progress Notes by Blaise Bryson MD at 05/23/132226 Author: Blaise Bryson MD Service: Obstetrics/Gynecology Author Type: Physician Filed: 05/23/132228 Date of Service: 05/23/132226 Status: Signed Consultant Dietitian: Blaise Bryson MD (Physician) [facility] Service: Obstetrics & Gynecology C/S Progress Note [...] Service: Obstetrics/Gynecology Author Type: Physician Filed: 05/22/13 5482 Date of Service: 05/22/132317 Status: Signed Consultant Dietitian: Blaise Bryson MD (Physician) [facility] Service: Obstetrics & Gynecology C/S Progress Note [...] Author: OLIVIA Cox Service: (none) Author Type: Retail Pos Specialist Filed: 05/21/131641 Date of Service: 05/21/131641 Status: Signed Consultant Dietitian: OLIVIA Cox (Retail Pos Specialist) CM met with Sherry KHOURY ([phone]) in her room. MOB stated she felt good enough to talk with me. FOB's name is Stone Dao. MOB and FOB reside together at [address] [place] [address]. MOB's 9 yo boy also resides with [...] carseat yet. CM informed MOB of $30 [facility] carseat. CM left name and number on NICU packet and encouraged MOB to cont act CM if any needs arise. OLIVIA Cox Blaise Hernandez MD - 05/20/2013 9:28 PM PDT Progress Notes by Blaise Bryson MD at 05/20/132127 Author: Blaise Bryson MD Service: Obstetrics/Gynecology Author Type: Physician Filed: 05/20/132134 Date of Service: 05/20/132127 Status: Signed Consultant Dietitian: Blaise Bryson MD (Physician) [facility] Service: Obstetrics & Gynecology Antepartum Progress Note [...] At | + + + | CASE: [id number] PATIENT: SHERRY TESFAYE Surgical Pathology | EXTERNAL [...] | | comprised of pink-mckeon spongy parenchyma. Lawn Care Worker sections of | | | the specimen are submitted as follows: Cassette Summary: (A1) | | | cord and membranes; (A2) technical services representative full thickness section to | | | include a technical services representative section of the described mckeon-brown | [...] | Testing performed at | | | [facility];[address];[place] [address] CULTURE | | | NO GROWTH | | | Testing performed at [facility], [address] [place], [place], | | | [place] [address] REPORT STATUS | | | 05/21/2013 FINAL [...]
--- OUTSIDE RECORDS SUMMARY | ~2020-03-07 | XMS | Encounter Summary ---
Demographics + + + | Address | [address] | | | [place] [address] | + + + | Home Phone | | + + + | Preferred Language | Unknown | + + + | Marital Status | | + + + | Buddhism Affiliation | Unknown | + + + | Race | Unknown | + + + | Ethnic Group | Unknown | + + + Author + + + | Author | [facility] | | | and [place] | + + + | Organization | [facility] | | | and [place] [...] [place], [place] | | | | | [address] | | + + + + + Care Team Providers + +------+ + | Care Lunchroom Worker Name | Role | Phone | + +------+ + PCP | Unavailable | + +------+ + Encounter Details +--------+ + + + + | Date | Type | Department | Care Team | Description | +--------+ + + + + | 06/02/ | Hospital | [facility] IP | Conversion | Back pain, | | 2014 | Encounter | CONVERSION [address] | Transaction, | unspecified location | | | | [address] | Provider Unknown | | | | | [place] | [phone] | | | | | [address] | | | | | | [phone] | | | +--------+ + + + [...]
--- OUTSIDE RECORDS SUMMARY | ~2020-03-07 | XMS | Encounter Summary ---
Demographics + + + | Address | [address] | | | [place] [address] | + + + | Home Phone | | + + + | Preferred Language | Unknown | + + + | Marital Status | | + + + | Advent Affiliation | Unknown | + + + | Race | Unknown | + + + | Ethnic Group | Unknown | + + + Author + + + | Author | [facility] | | | and [place] | + + + | Organization | [facility] | | | and [place] [...] [place], [place] | | | | | [address] | | + + + + + Care Team Providers + +------+ + | Care Enterprise Resource Analyst Name | Role | Phone | + +------+ + PCP | Unavailable | + +------+ + Encounter Details +--------+ + + + + | Date | Type | Department | Care Team | Description | +--------+ + + + + | 06/02/ | Hospital | [facility] IP | Conversion | Back pain, | | 2014 | Encounter | CONVERSION [address]P [address] | Transaction, | unspecified location | | | | [address] | Provider Unknown | | | | | [place] | [phone] | | | | | [address] | | | | | | [phone] | | | +--------+ + + + [...]
--- OUTSIDE RECORDS SUMMARY | ~2020-03-07 | XMS | Clinical Summary ---
Demographics + + + | Address | [address] | | | [place] [address] | + + + | Home Phone | | + + + | Preferred Language | Unknown | + + + | Marital Status | | + + + | Jain Affiliation | Unknown | + + + | Race | Unknown | + + + | Ethnic Group | Unknown | + + + Author + + + | Author | [facility] | | | and [place] | + + + | Organization | [facility] | | | and [place] [...] [place], [place] | | | | | [address] | | + + + + + Care Team Providers + +------+ + | Care Property Underwriter Name | Role | Phone | + [...] +-------+--------+ +--------+-------+---------+------+ | BCBS | BCBS | [id number] | | | | PPO | | [...] al/Elder | | 1986 | [phone] | [place] [address] | | | berto | | | 4 (Home) | | + +--------+ +--------+ + + Advance Directives + + + + + | Type | Date Recorded | Patient | Explanation | | | | Hydrochloric Area Supervisor | | + + + + + | Power of | | | | | Open Shank Coverer | | | | + + + + + | Advance | 02/17/2018 6:17 | | | | Directive | PM | | | + + + + +
--- OUTSIDE RECORDS SUMMARY | ~2020-03-07 | XMS | Encounter Summary ---
Demographics + + + | Address | [address] | | | [place] [address] | + + + | Home Phone | | + + + | Preferred Language | Unknown | + + + | Marital Status | | + + + | Episcopal Affiliation | Unknown | + + + | Race | Unknown | + + + | Ethnic Group | Unknown | + + + Author + + + | Author | [facility] | | | and [place] | + + + | Organization | [facility] | | | and [place] | + + + | Address | Unknown | + + + | Phone | Unavailable | + + + Support + + + + + | Name | Relationship | Address | Phone | + + + + + | Paulino Soni | ECON | [address] | | | | | [place] | | | | | [address] | | + + + + + Care Team Providers + +------+ + | Care Hospitality Housekeeper Name | Role | Phone | + +------+ + | Kulwant Bailey MD | PCP | | + +------+ + Encounter Details +--------+ + + + + | Date | Type | Department | Care Team | Description | +--------+ + + + + | 11/12/ | Orders Only | [facility] | Niall Mcallister | | | 2016 | | CONVERSION [address] | [address] | | | | | [address] | [place], | | | | | [facility] [place] | [address] [place], | | | | | [address] | [place] [address] | | | | | [phone] | [phone] | | | | | | | | +--------+ + + + [...] | + +--------+ + + + | ECHO INTERPRETATION | Routin | 11/12/2015 | | Results for this | | OF OUTSIDE FILMS | e | 10:47 AM | | procedure are in the | | | | PST | | results section. | + +--------+ + + + documented in this encounter Results ECHO Interpretation of Outside Films (11/12/2015 10:47 AM PST) + + | Specimen | + + | | + + + + + | Impressions | Performed At | + + + | 1. Essentially normal study. | | + + + + + + | Narrative | Performed At | + + + | Patient Name: Jessica Tesfaye Date of : 1985 | | | Performing Physician: LIOR CUELLAR MD | | | | | | INDICATIONS SOB CONCLUSIONS 1. | | | Essentially normal study. FINDINGS -------- ECG rhythm: Sinus | | | rhythm. Study: A 2-dimensional transthoracic echocardiogram with | | | m-mode, spectral and color flow Doppler was perfomed. Study: This was | | | a technically adequate study. Left Ventricle: Overall left | | | ventricular systolic function is normal with, an EF between 60 - 65 %. | | | Left Ventricle: The left ventricle cavity size is normal. Left | | | Ventricle: Left ventricular wall thickness is normal. Left Ventricle: | | | No regional wall motion abnormalities. Left Ventricle: The diastolic | | | filling pattern is normal for the age of the patient. Right | | | Ventricle: The right ventricle is normal in size. Left Atrium: The | | | left atrium is normal in size. Right Atrium: The right atrium is | | | normal in size. Aortic Valve: The aortic valve is trileaflet and | | | appears structurally normal. Aortic Valve: There is no evidence of | | | aortic regurgitation. Aortic Valve: There is no evidence of aortic | | | stenosis. Mitral Valve: The mitral valve is normal. Mitral Valve: | | | There is trace mitral regurgitation. Tricuspid Valve: The tricuspid | | | valve appears structurally normal. Tricuspid Valve: Trace tricuspid | | | regurgitation present. Tricuspid Valve: There is no evidence of | | | pulmonary hypertension. Tricuspid Valve: The right ventricular | | | systolic pressure (pulmonary artery systolic pressure), as measured by | | | Doppler, is 21.16mmHg. Tricuspid Valve: The poor TR signal prevents | | | accurate estimation of pulmonary pressures. Pulmonic Valve: The | | | pulmonic valve is normal. Pulmonic Valve: Trace pulmonic | | | regurgitation. Pericardium: There is no pericardial effusion. | | | IVC/Hepatic Veins: The IVC is normal size (1.5-2.5cm) and collapses | | | >50% with sniff, consistent with central venous pressures of 5-10mmHg. | | | Aorta: The aortic root, ascending aorta and aortic arch are normal. | | | Mass: No mass visualized Thrombus: No clot visualized Thrombus: No | | | vegetation visualized. Septum: No ASD observed. Septum: No VSD | | | observed. MEASUREMENTS Ao asc: 2.67 cm Ao | | | Diam: 2.91 cm IVC: 1.88 cm LA Diam: 3.86 cm LA Major: | | | 4.77 cm EDV(Teich): 130.91 ml IVSd: 0.81 cm LVIDd: 5.22 cm | | | LVPWd: 0.81 cm LVOT Area: 4.08 cm2 LVOT Diam: 2.28 cm | | | %FS: 31.88 % EF(Teich): 59.56 % ESV(Teich): 52.93 ml | | | LVIDs: 3.55 cm SV(Teich): 77.97 ml RA Major: 4.74 cm | | | RVIDd: 3.01 cm LVEF MOD A2C: 63.02 % SV MOD A2C: 84.29 ml | | | LVEF MOD A4C: 60.42 % SV MOD A4C: 80.62 ml EF Biplane: | | | 61.68 % LVEDV MOD BP: 133.37 ml LVESV MOD BP: 51.10 ml LVEDV | | | MOD A2C: 133.73 ml LVLd A2C: 8.50 cm LVEDV MOD A4C: 133.41 | | | ml LVLd A4C: 8.51 cm LVESV MOD A2C: 49.44 ml LVLs A2C: | | | 7.05 cm LVESV MOD A4C: 52.79 ml LVLs A4C: 6.99 cm LAESV(A-L): | | | 56.10 ml LAESV Index (A-L): 24.93 ml/m2 LAAs A2C: 17.48 | | | cm2 LAESV A-L A2C: 56.59 ml LALs A2C: 4.58 cm LAAs A4C: | | | 17.33 cm2 LAESV A-L A4C: 49.53 ml LALs A4C: 5.14 cm Ao Diam: | | | 2.99 cm LA Diam: 3.93 cm LA/Ao: 1.31 AV maxP.42 | | | mmHg AV meanP.05 mmHg AV Vmax: 1.45 m/s AV Vmean: 0.91 | | | m/s AV VTI: 24.77 cm CORETTA Vmax: 2.71 cm2 CORETTA (VTI): 3.01 | | | cm2 AVAI (Vmax): 0.00 cm2/m2 AVAI (VTI): 0.00 cm2/m2 LVOT | | | maxP.71 mmHg LVOT meanP.17 mmHg LVSI Dopp: 33.22 | | | ml/m2 LVSV Dopp: 74.75 ml LVOT Vmax: 0.96 m/s LVOT Vmean: | | | 0.70 m/s LVOT VTI: 18.28 cm MV A Stephen: 0.62 m/s MV DecT: | | | 149.50 ms MV E Stephen: 0.96 m/s MV E/A Ratio: 1.52 MV PHT: | | | 43.35 ms MVA By PHT: 5.07 cm2 Septal e': 0.10 m/s Septal | | | E/e': 9.32 RAP: 5 mmHg RVSP: 21.16 mmHg TR maxP.16 | | | mmHg TR Vmax: 2.01 m/s Nurse Clinical: LYLE Authenticated by: | | | LIOR CUELLAR MD Report Date/Time: 11-12-2015 16:17:44 | | + + + + + | Procedure Note | + + | Jose Enrique Villa Conversion - 05/30/2019 10:41 AM PDT Patient Name: Jean Pierre Tesfaye of | | : 1985 Performing Physician: LIOR CUELLAR | | INDICATIONS S | | OB CONCLUSIONS 1. Essentially normal study. FINDINGS--------ECG rhythm: Sinus | | rhythm.Study: A 2-dimensional transthoracic echocardiogram with m-mode, spectral and | | color flow Doppler was perfomed.Study: This was a technically adequate study.Left | | Ventricle: Overall left ventricular systolic function is normal with, an EF between 60 - | | 65 %.Left Ventricle: The left ventricle cavity size is normal.Left Ventricle: Left | | ventricular wall thickness is normal.Left Ventricle: No regional wall motion | | abnormalities.Left Ventricle: The diastolic filling pattern is normal for the age of the | | patient.Right Ventricle: The right ventricle is normal in size.Left Atrium: The left | | atrium is normal in size.Right Atrium: The right atrium is normal in size.Aortic Valve: | | The aortic valve is trileaflet and appears structurally normal.Aortic Valve: There is no | | evidence of aortic regurgitation.Aortic Valve: There is no evidence of aortic | | stenosis.Mitral Valve: The mitral valve is normal.Mitral Valve: There is trace mitral | | regurgitation.Tricuspid Valve: The tricuspid valve appears structurally normal.Tricuspid | | Valve: Trace tricuspid regurgitation present.Tricuspid Valve: There is no evidence of | | pulmonary hypertension.Tricuspid Valve: The right ventricular systolic pressure | | (pulmonary artery systolic pressure), as measured by Doppler, is 21.16mmHg.Tricuspid | | Valve: The poor TR signal prevents accurate estimation of pulmonary pressures.Pulmonic | | Valve: The pulmonic valve is normal.Pulmonic Valve: Trace pulmonic | | regurgitation.Pericardium: There is no pericardial effusion.IVC/Hepatic Veins: The IVC | | is normal size (1.5-2.5cm) and collapses >50% with sniff, consistent with central venous | | pressures of 5-10mmHg.Aorta: The aortic root, ascending aorta and aortic arch are | | normal.Mass: No mass visualizedThrombus: No clot visualizedThrombus: No vegetation | | visualized.Septum: No ASD observed.Septum: No VSD observed. MEASUREMENTS Ao | | asc: 2.67 cmAo Diam: 2.91 cmIVC: 1.88 cmLA Diam: 3.86 cmLA Major: 4.77 | | cmEDV(Teich): 130.91 mlIVSd: 0.81 cmLVIDd: 5.22 cmLVPWd: 0.81 cmLVOT Area: | | 4.08 lo2PGWW Diam: 2.28 cm%FS: 31.88 %EF(Teich): 59.56 %ESV(Teich): 52.93 | | mlLVIDs: 3.55 cmSV(Teich): 77.97 mlRA Major: 4.74 cmRVIDd: 3.01 cmLVEF MOD A2C: | | 63.02 %SV MOD A2C: 84.29 mlLVEF MOD A4C: 60.42 %SV MOD A4C: 80.62 mlEF Biplane: | | 61.68 %LVEDV MOD BP: 133.37 mlLVESV MOD BP: 51.10 mlLVEDV MOD A2C: 133.73 mlLVLd | | A2C: 8.50 cmLVEDV MOD A4C: 133.41 mlLVLd A4C: 8.51 cmLVESV MOD A2C: 49.44 | | mlLVLs A2C: 7.05 cmLVESV MOD A4C: 52.79 mlLVLs A4C: 6.99 cmLAESV(A-L): 56.10 | | mlLAESV Index (A-L): 24.93 ml/m2LAAs A2C: 17.48 [id number] A-L A2C: 56.59 mlLALs | | A2C: 4.58 cmLAAs A4C: 17.33 di7MOMYP A-L A4C: 49.53 mlLALs A4C: 5.14 cmAo Diam: | | 2.99 cmLA Diam: 3.93 cmLA/Ao: 1.31AV maxP.42 mmHgAV meanP.05 mmHgAV | | Vmax: 1.45 m/Samara Vmean: 0.91 m/Samara VTI: 24.77 cmAVA Vmax: 2.71 cm2AVA (VTI): | | 3.01 sq4BXVV (Vmax): 0.00 cm2/m2AVAI (VTI): 0.00 cm2/m2LVOT maxP.71 mmHgLVOT | | meanP.17 mmHgLVSI Dopp: 33.22 ml/m2LVSV Dopp: 74.75 mlLVOT Vmax: 0.96 | | m/sLVOT Vmean: 0.70 m/sLVOT VTI: 18.28 cmMV A Stephen: 0.62 m/sMV DecT: 149.50 msMV | | E Stephen: 0.96 m/sMV E/A Ratio: 1.52MV PHT: 43.35 msMVA By PHT: 5.07 vv1Dosxsw e': | | 0.10 m/sSeptal E/e': 9.32RAP: 5 mmHgRVSP: 21.16 mmHgTR maxP.16 mmHgTR | | Vmax: 2.01 m/s Nurse Clinical: ROBERTuthenticated by: LIOR Meredith Date/Time: | | 11-12-2015 16:17:44 IMPRESSION: 1. Essentially normal study. | |Thrombus: No clot visualized | |Thrombus: No vegetation visualized. | |Septum: No ASD observed. | |Septum: No VSD observed. | | | |MEASUREMENTS | | | |Ao asc: 2.67 cm | |Ao Diam: 2.91 cm | |IVC: 1.88 cm | |LA Diam: 3.86 cm | |LA Major: 4.77 cm | |EDV(Teich): 130.91 ml | |IVSd: 0.81 cm | |LVIDd: 5.22 cm | |LVPWd: 0.81 cm | |LVOT Area: 4.08 cm2 | |LVOT Diam: 2.28 cm | |%FS: 31.88 % | |EF(Teich): 59.56 % | |ESV(Teich): 52.93 ml | |LVIDs: 3.55 cm | |SV(Teich): 77.97 ml | |RA Major: 4.74 cm | |RVIDd: 3.01 cm | |LVEF MOD A2C: 63.02 % | |SV MOD A2C: 84.29 ml | |LVEF MOD A4C: 60.42 % | |SV MOD A4C: 80.62 ml | |EF Biplane: 61.68 % | |LVEDV MOD BP: 133.37 ml | |LVESV MOD BP: 51.10 ml | |LVEDV MOD A2C: 133.73 ml | |LVLd A2C: 8.50 cm | |LVEDV MOD A4C: 133.41 ml | |LVLd A4C: 8.51 cm | |LVESV MOD A2C: 49.44 ml | |LVLs A2C: 7.05 cm | |LVESV MOD A4C: 52.79 ml | |LVLs A4C: 6.99 cm | |LAESV(A-L): 56.10 ml | |LAESV Index (A-L): 24.93 ml/m2 | |LAAs A2C: 17.48 cm2 | |LAESV A-L A2C: 56.59 ml | |LALs A2C: 4.58 cm | |LAAs A4C: 17.33 cm2 | |LAESV A-L A4C: 49.53 ml | |LALs A4C: 5.14 cm | |Ao Diam: 2.99 cm | |LA Diam: 3.93 cm | |LA/Ao: 1.31 | |AV maxP.42 mmHg | |AV meanP.05 mmHg | |AV Vmax: 1.45 m/s | |AV Vmean: 0.91 m/s | |AV VTI: 24.77 cm | |CORETTA Vmax: 2.71 cm2 | |CORETTA (VTI): 3.01 cm2 | |AVAI (Vmax): 0.00 cm2/m2 | |AVAI (VTI): 0.00 cm2/m2 | |LVOT maxP.71 mmHg | |LVOT meanP.17 mmHg | |LVSI Dopp: 33.22 ml/m2 | |LVSV Dopp: 74.75 ml | |LVOT Vmax: 0.96 m/s | |LVOT Vmean: 0.70 m/s | |LVOT VTI: 18.28 cm | |MV A Stephen: 0.62 m/s | |MV DecT: 149.50 ms | |MV E Stephen: 0.96 m/s | |MV E/A Ratio: 1.52 | |MV PHT: 43.35 ms | |MVA By PHT: 5.07 cm2 | |Septal e': 0.10 m/s | |Septal E/e': 9.32 | |RAP: 5 mmHg | |RVSP: 21.16 mmHg | |TR maxP.16 mmHg | |TR Vmax: 2.01 m/s | | | |Nurse Clinical: | |Authenticated by: LIOR CUELLAR MD | |Report Date/Time: 11-12-2015 16:17:44 | | | |IMPRESSION: | |1. Essentially normal study. | + + documented in this encounter Visit Diagnoses Not on filedocumented in this encounter"
--- OUTSIDE RECORDS SUMMARY | ~2020-03-07 | XMS | Encounter Summary ---
Demographics + + + | Address | [address] | | | [place] [address] | + + + | Home Phone | | + + + | Preferred Language | Unknown | + + + | Marital Status | | + + + | Religion Affiliation | Unknown | + + + | Race | Unknown | + + + | Ethnic Group | Unknown | + + + Author + + + | Author | [facility] | | | and [place] | + + + | Organization | 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
--- OUTSIDE RECORDS SUMMARY | ~2020-03-07 | XMS | Encounter Summary ---
Demographics + + + | Address | [address] | | | [place] [address] | + + + | Home Phone | | + + + | Preferred Language | Unknown | + + + | Marital Status | | + + + | Adventism Affiliation | Unknown | + + + | Race | Unknown | + + + | Ethnic Group | Unknown | + + + Author + + + | Author | [facility] | | | and [place] | + + + | Organization | [facility] | | | and [place] [...] | [place] | | | | | [address] | | + + + + + Care Team Providers + +------+ + | Care Seed Potato Arranger Name | Role | Phone | + [...] [place], | | | | | [facility] [place] | [address] [place], | | | | | [address] | [place] [address] | | | | | [phone] | [phone] | | | | | | | [...] | | mmHg TR Vmax: 2.01 m/s Referral Manager: LYLE Authenticated by: | | | LIOR [...] cmLVPWd: 0.81 cmLVOT Area: | | 4.08 ph6IEFD Diam: 2.28 cm%FS: 31.88 %EF(Teich): 59.56 %ESV(Teich): [...] mlLAESV Index (A-L): 24.93 ml/m2LAAs A2C: 17.48 wa2KWXOX A-L A2C: 56.59 mlLALs | | A2C: 4.58 cmLAAs A4C: 17.33 ip0STWBJ A-L A4C: 49.53 mlLALs A4C: 5.14 cmAo Diam: | | 2.99 cmLA Diam: 3.93 cmLA/Ao: 1.31AV maxP.42 mmHgAV meanP.05 mmHgAV | | Vmax: 1.45 m/Samara Vmean: 0.91 m/Samara VTI: 24.77 cmAVA Vmax: 2.71 cm2AVA (VTI): | | 3.01 te0TAGR (Vmax): 0.00 cm2/m2AVAI (VTI): 0.00 cm2/m2LVOT maxP.71 mmHgLVOT | | meanP.17 mmHgLVSI Dopp: 33.22 ml/m2LVSV Dopp: 74.75 mlLVOT Vmax: 0.96 | | m/sLVOT Vmean: 0.70 m/sLVOT VTI: 18.28 cmMV A Stephen: 0.62 m/sMV DecT: 149.50 msMV | | E Stephen: 0.96 m/sMV E/A Ratio: 1.52MV PHT: 43.35 msMVA By PHT: 5.07 tz9Cmgagu e': | | 0.10 m/sSeptal E/e': 9.32RAP: 5 mmHgRVSP: 21.16 mmHgTR maxP.16 mmHgTR | | Vmax: 2.01 m/s Referral Manager: ROBERTuthenticated by: LIOR Meredith Date/Time: | | [...] |TR Vmax: 2.01 m/s | | | |Referral Manager: | |Authenticated by: LIOR CUELLAR MD | |Report Date/Time: 11-12-2015 16:17:44 | | | |IMPRESSION: | |1. Essentially normal study. | + + documented in this encounter Visit Diagnoses Not on filedocumented in this encounter"
--- OUTSIDE RECORDS SUMMARY | ~2020-03-07 | XMS | Clinical Summary ---
Demographics + + + | Address | [address] | | | [place] [address] | + + + | Home Phone | | + + + | Preferred Language | Unknown | + + + | Marital Status | | + + + | Sikhism Affiliation | Unknown | + + + | Race | Unknown | + + + | Ethnic Group | Unknown | + + + Author + + + | Author | [facility] | | | and [place] | + + + | Organization | [facility] | | | and [place] | [...] [place], [place] | | | | | [address] | | + + + + + Care Team Providers + +------+ + | Care Construction Specialist Name | Role | Phone | [...] +-------+--------+ +--------+-------+---------+------+ | BCBS | BCBS | [id number] | | | | PPO | | [...] | 1986 | [phone] | [place] [address] | | | berto | | | 4 (Home) | | + +--------+ +--------+ + + Advance Directives + + + + + | Type | Date Recorded | Patient | Explanation | | | | Forestry Support Specialist | | + + + + + | Power of | | | | | Lecturer In Computer Science | | | | + + + + + | Advance | 02/17/2018 6:17 | | | | Directive | PM | | | + + + + +
[2020-03-07] MEDS ORDERED: KEFLEX500 MG PO (15:03)
== END 2020-03-07 15:12 | disposition home or self-care (01) ==
LOC: ED 13:09
DX: L03.116 Cellulitis of left lower limb (principal); I87.002 Postthrombotic syndrome without complications of left lower extremity; G43.909 Migraine, unspecified, not intractable, without status migrainosus; F17.200 Nicotine dependence, unspecified, uncomplicated; Z88.1 Allergy status to other antibiotic agents; Z88.8 Allergy status to other drugs, medicaments and biological substances
CPT/HCPCS: 80053; 85025; 93971; 99284-25; A9270

== ENCOUNTER 2020-04-25 12:46 | Emergency (ER) | payer BC, OTHER ==
[~2020-04-25] VITALS: Ht 172.7 cm; Wt 99.8 kg
[2020-04-25] MEDS ORDERED: ONDANSETRON ODT8 MG PO (13:59)
--- NOTE | 2020-04-26 10:20 | EKG ---
[facility] [address] [facility] [place], [place] [address] Signed Normal sinus rhythm Normal ECG Confirmed by NAVID RODRIGUEZ MD ([id number]) on 04/26/2020 10:20:19 AM Electronically Signed By: NAVID RODRIGUEZ MD 04/26/20 1020 PATIENT NAME: ARCELIASHERRY RANJIT Electrocardiogram DATE OF : 85 PHYSICIAN: NAVID RODRIGUEZ MD REPORT #: [id number] REPORT IS CONFIDENTIAL AND NOT TO BE RELEASED WITHOUT AUTHORIZATION
--- NOTE | 2020-04-26 20:32 | PATH ---
[facility] [address] [place], [place] [address] Signed ORDERING PHYSICIAN: Phillip Norris MD PATIENT NAME: SHERRY PANIAGUAN GENDER: F : 1985 SPECIMEN(S): No Source Given CLINICAL HISTORY: Routine Pap Smear MOLECULAR PATHOLOGY RESULTS: SARS-CoV-2 Not Detected ADDITIONAL NOTES.: The [place] Fusion SARS-CoV-2 Assay is a multiplex real-time PCR (RT-PCR) in vitro diagnostic test intended for the qualitative detection of RNA from SARS-CoV-2 from individuals who meet COVID-19 clinical and/or epidemiological criteria. In general, SARS-CoV-2 RNA can be detected during the acute phase of infection. Positive results indicate the presence of SARS-CoV-2 RNA. Clinical correlation with patient history and other diagnostic information is necessary to determine patient infection status. Positive results do not rule out bacterial infection or co-infection with other viruses. Negative results do not preclude SARS-CoV-2 infection and should not be used as the sole basis for patient management decisions. Negative results must be combined with other clinical observations, patient history, and epidemiological information. The [place] Fusion SARS-CoV-2 Assay is not yet approved or cleared by the [place] FDA. When there are no FDA-approved or cleared tests available, and other criteria are met, FDA can make tests available under an emergency access mechanism called an Emergency Use Authorization (EUA). The EUA for this test is supported by the [place] of Health and Human Service's (HHS's) declaration that circumstances exist to justify the emergency use of in vitro diagnostics for the detection and/or diagnosis of the virus that causes COVID-19. This EUA will remain in effect for the duration of the COVID-19 declaration justifying emergency of IVDs, unless it is terminated or revoked by FDA, after which the test may no longer be used. The [place] Fusion SARS-CoV-2 Assay is for use only under EUA in laboratories certified under the Clinical Laboratory Improvement PATIENT NAME: SHERRY PANIAGUA PATHOLOGY DATE OF : [birth year] REPORT #: [id number] PHYSICIAN: JEAN PATHOLOGY PCP: BENJI LARSEN REPORT IS CONFIDENTIAL AND NOT TO BE RELEASED WITHOUT AUTHORIZATION [address] [address] Signed Amendments of 1988 (CLIA) to perform high complexity tests. [facility] is certified under CLIA to perform high complexity clinical laboratory testing. PERFORMING LABORATORY.: Molecular testing was performed by [facility] [address] [place], [place] [address] [address] (Insole Bottom Filler: Jeffry Shine D.O.; CLIA#: [id number]) Diagnostician: System Interface Pathologist Electronically Signed 04/26/2020 Copies: ~ PATIENT NAME: SHERRY PANIAGUA PATHOLOGY DATE OF : [birth year] REPORT #: [id number] PHYSICIAN: JEAN CULLEN PCP: BENJI LARSEN REPORT IS CONFIDENTIAL AND NOT TO BE RELEASED WITHOUT AUTHORIZATION
== END 2020-04-25 14:56 | disposition home or self-care (01) ==
LOC: ED 12:46
DX: B34.9 Viral infection, unspecified (principal); F17.200 Nicotine dependence, unspecified, uncomplicated; Z88.8 Allergy status to other drugs, medicaments and biological substances; Z88.1 Allergy status to other antibiotic agents; Z20.828 Contact with and (suspected) exposure to other viral communicable diseases
CPT/HCPCS: 93005; 93010; 99285-25; C9803

== ENCOUNTER 2021-01-26 14:19 | Emergency (ER) | payer SELFPAY ==
[~2021-01-26] VITALS: Ht 172.7 cm; Wt 70.3 kg
[~2021-01-26 14:19] MED LIST changes: +ONDANSETRON ODT8 MG PO
[2021-01-26] MEDS ORDERED: PENICILLIN V P500 MG PO (16:17)
== END 2021-01-26 16:39 | disposition home or self-care (01) ==
LOC: ED 14:19
DX: K02.9 Dental caries, unspecified (principal); G43.909 Migraine, unspecified, not intractable, without status migrainosus; F17.200 Nicotine dependence, unspecified, uncomplicated; Z88.8 Allergy status to other drugs, medicaments and biological substances; Z88.1 Allergy status to other antibiotic agents
CPT/HCPCS: 99282

== ENCOUNTER 2021-06-16 23:25 | Emergency (ER) | payer SELFPAY ==
[~2021-06-16] VITALS: Ht 172.7 cm; Wt 77.1 kg
== END 2021-06-17 03:19 | disposition home or self-care (01) ==
LOC: ED 23:25
DX: B34.9 Viral infection, unspecified (principal); G43.909 Migraine, unspecified, not intractable, without status migrainosus; F17.200 Nicotine dependence, unspecified, uncomplicated; Z20.822 Contact with and (suspected) exposure to COVID-19; Z88.8 Allergy status to other drugs, medicaments and biological substances; Z88.1 Allergy status to other antibiotic agents; Z88.2 Allergy status to sulfonamides
CPT/HCPCS: 99284; C9803; U0003

== ENCOUNTER 2021-11-04 13:03 | Emergency (ER) | payer SELFPAY ==
[~2021-11-04] VITALS: Ht 172.7 cm; Wt 83.9 kg
[2021-11-04] MEDS ORDERED: ONDANSETRON ODT8 MG PO (16:31)
== END 2021-11-04 17:00 | disposition home or self-care (01) ==
LOC: ED 13:03
DX: U07.1 COVID-19 (principal); G43.909 Migraine, unspecified, not intractable, without status migrainosus; F17.200 Nicotine dependence, unspecified, uncomplicated; Z86.718 Personal history of other venous thrombosis and embolism; Z88.8 Allergy status to other drugs, medicaments and biological substances; Z88.1 Allergy status to other antibiotic agents
CPT/HCPCS: 81001; 83605; 85025; 96374; 99284-25; C9803; J1885; J7030; U0003

== ENCOUNTER 2022-06-19 15:03 | Emergency (ER) | payer OTHER ==
[~2022-06-19] VITALS: Ht 172.7 cm; Wt 107.9 kg
[2022-06-19] MEDS ORDERED: CLEOCIN HCL300 MG PO (17:33)
== END 2022-06-19 17:59 | disposition home or self-care (01) ==
LOC: ED 15:03
DX: L03.116 Cellulitis of left lower limb (principal); L03.115 Cellulitis of right lower limb; G43.909 Migraine, unspecified, not intractable, without status migrainosus; F17.200 Nicotine dependence, unspecified, uncomplicated; Z88.8 Allergy status to other drugs, medicaments and biological substances; Z88.1 Allergy status to other antibiotic agents
CPT/HCPCS: 36415; 80053; 85025; 99283

== ENCOUNTER 2022-11-09 23:19 | Emergency (ER) | payer OTHER ==
[~2022-11-09] VITALS: Ht 172.7 cm; Wt 113.8 kg
[~2022-11-09 23:19] MED LIST changes: +CLEOCIN HCL300 MG PO
[2022-11-09] MEDS ORDERED: AMOXICILLIN500 MG PO (23:30)
[2022-11-09] MEDS ORDERED: CLEOCIN HCL300 MG PO (23:34)
[2022-11-09] MEDS ORDERED: HYDROCODON-ACE1 EA10 PO (23:34)
== END 2022-11-09 23:43 | disposition home or self-care (01) ==
LOC: ED 23:19
DX: K04.7 Periapical abscess without sinus (principal); F17.200 Nicotine dependence, unspecified, uncomplicated; Z88.8 Allergy status to other drugs, medicaments and biological substances; Z88.1 Allergy status to other antibiotic agents
CPT/HCPCS: 99282; A9270

== ENCOUNTER 2023-07-10 11:49 | Emergency (ER) | payer OTHER ==
[~2023-07-10] VITALS: Ht 172.7 cm; Wt 111.4 kg
--- OUTSIDE RECORDS SUMMARY | ~2023-07-10 | XMS | Continuity of Care Document ---
Demographics + + + | Address | [address] | | | [place] [address] | + + + | Preferred Language | Unknown | + + + | Marital Status | | + + + | Presybeterian Affiliation | Unknown | + + + | Race | White | + + + | Ethnic Group | Not or | + + + Author + + + | Author | [facility] | + + + | Organization | [facility] | + + + | Address | [address] | | | [place] [address] | + + + | Phone | | + + + Care Team Providers + + + + | Care Assistant Tennis Coach Name | Role | Phone | + + + + Unavailable | Unavailable | + + + + Allergies No information. Encounters No information. Functional Status No information. Immunizations No information. Medications No information. Problems + + + + | date | description | facility | + + + + | 2023-04-29 04:16 | NICOTINE DEPENDENCE, | [facility] | | | UNSPECIFIED, UNCOMPLICATED | | + + + + | 2023-04-29 04:16 | LOCALIZED EDEMA | [facility] | + + + + | 2023-04-29 04:16 | OTHER DRY CURER (CURRENT) | [facility] | | | DRUG THERAPY | | + + + + | 2023-04-29 04:16 | PERSONAL HISTORY OF OTHER | [facility] | | | VENOUS THROMBOSIS AND EM | | + + + + | 2023-04-29 04:16 | ALLERGY STATUS TO OTHER | [facility] | | | ANTIBIOTIC AGENTS STATUS | | + + + + | 2023-04-29 04:16 | ALLERGY STATUS TO OTH | [facility] | | | DRUG/MEDS/BIOL SUBST STATUS | | | | | | + + + + Procedures No information. Results/Labs No information. Social History +--------+ + + | date | description | facility | +--------+ + + Vital Signs No information."
[~2023-07-10 11:49] MED LIST changes: +AMOXICILLIN500 MG PO; +HYDROCHLOROTHIA50 MG PO; +K-TAB ER20 MEQ PO; +MACROBID 100 M100 MG PO
[2023-07-10] MEDS ORDERED: TRAMADOL HCL50 MG PO (12:12)
[2023-07-10] MEDS ORDERED: IBU600 MG PO (12:12)
[2023-07-10] MEDS ORDERED: PENICILLIN V P500 MG PO (12:12)
[2023-07-10 12:21] VITALS: BP 178/107
== END 2023-07-10 12:23 | disposition home or self-care (01) ==
LOC: ED 11:49
DX: K04.7 Periapical abscess without sinus (principal); G43.909 Migraine, unspecified, not intractable, without status migrainosus; F17.200 Nicotine dependence, unspecified, uncomplicated; Z88.8 Allergy status to other drugs, medicaments and biological substances; Z88.1 Allergy status to other antibiotic agents; Z79.899 Other long term (current) drug therapy
CPT/HCPCS: 99282

== ENCOUNTER 2023-08-22 22:30 | Emergency (ER) | payer OTHER ==
[~2023-08-22] VITALS: Ht 172.7 cm; Wt 113.2 kg
[~2023-08-22 22:30] MED LIST changes: +IBU600 MG PO
[2023-08-22 23:31] LABS: INFLUENZA B NAA NEGATIVE (NEGATIVE); RESPIRATORY SYNCYTIAL VIR NAA NEGATIVE (NEGATIVE)
[2023-08-22 23:59] VITALS: BP 142/94
== END 2023-08-22 23:59 | disposition home or self-care (01) ==
LOC: ED 22:30
PROVIDERS: Family Medicine
DX: J02.0 Streptococcal pharyngitis (principal); Z20.822 Contact with and (suspected) exposure to COVID-19; F17.200 Nicotine dependence, unspecified, uncomplicated; Z88.5 Allergy status to narcotic agent; Z88.1 Allergy status to other antibiotic agents; Z88.8 Allergy status to other drugs, medicaments and biological substances
CPT/HCPCS: 87502; 87651; 96372; 99283; A9270; C9803; J0561; J1100; J1885; U0002

== ENCOUNTER 2024-03-28 08:56 | Emergency (ER) | payer OTHER ==
[~2024-03-28] VITALS: Ht 172.7 cm; Wt 114.7 kg
[2024-03-28 09:12] LABS: BASOPHILS 0.7 % (0-2); EOSINOPHILS 2.2 % (0-6); MCH 28.5 (27-36); MCHC 32.5 g/dl (30-36); MCV 87.6 fl (81-99); NEUTROPHILS 62.1 % (39-80); PLATELET COUNT 254 K/uL (140-440); RBC 4.91 M/ul (4.3-5.7); RDW 14.3 (10.5-15.0)
[2024-03-28] MEDS ORDERED: NITROGLYCERIN PACKET TOP ONE (09:15)
[2024-03-28] MEDS ORDERED: MORPHINE SULFATE 4 MG/ML VIAL IV ONE (09:15)
[2024-03-28] MEDS ORDERED: ASPIRIN 81 MG CHEW PO ONE (09:15)
[2024-03-28 09:21] LABS: INR 0.9 (0.80-1.30); PROTIME 11.8 Sec (11.2-14.2)
[2024-03-28 09:23] LABS: PARTIAL THROMBOPLASTIN TIME 26.6 Sec (22.9-41.3)
[2024-03-28 09:33] LABS: ALBUMIN 3.6 g/dL (3.4-5.0); ALBUMIN/GLOBULIN RATIO 0.92 (1.1-2.4); ANION GAP 12.2 (7-21); BILIRUBIN, TOTAL 0.3 ng/dL (0.2-1.0); BUN/CREATININE RATIO 11.68 (6.0-28.6); CALCIUM 9.1 mg/dL (8.5-10.1); CREATININE, SERUM 0.77 mg/dL (0.55-1.02); MAGNESIUM 1.9 mg/dL (1.8-2.4); POTASSIUM 3.2 mmol/L (3.5-5.1); PROTEIN, TOTAL 7.5 g/dL (6.4-8.2)
[2024-03-28] MEDS ORDERED: VISTARIL25 MG PO (10:58)
[2024-03-28 11:21] VITALS: BP 149/87
--- NOTE | 2024-03-28 16:11 | EKG ---
[facility] [address] [facility] [place] [address] Signed Normal sinus rhythm Nonspecific ST abnormality Abnormal ECG When compared with ECG of 25-APR-2020 13:07, T wave inversion no longer evident in Anterior leads Confirmed by Kiesha Calderon ([id number]) on 03/28/2024 4:11:42 PM Electronically Signed By: KIESHA CALDERON MD 03/28/24 1611 PATIENT NAME: ARCELIASHERRY RANJIT Electrocardiogram DATE OF : [birth year] PHYSICIAN: KIESHA CALDERON MD REPORT #: [id number] REPORT IS CONFIDENTIAL AND NOT TO BE RELEASED WITHOUT AUTHORIZATION
== END 2024-03-28 11:21 | disposition home or self-care (01) ==
LOC: ED 08:56
PROVIDERS: Family Medicine
DX: R07.89 Other chest pain (principal); F17.200 Nicotine dependence, unspecified, uncomplicated; Z88.5 Allergy status to narcotic agent; Z88.1 Allergy status to other antibiotic agents; Z88.8 Allergy status to other drugs, medicaments and biological substances
CPT/HCPCS: 36415; 71045; 80053; 83735; 83880; 84484; 85025; 85379; 85610; 85730; 93005; 93010; 96374; 99285-25; A9270; J2270

== ENCOUNTER 2024-04-10 12:41 | Emergency (ER) | payer OTHER ==
[~2024-04-10] VITALS: Ht 172.7 cm; Wt 125.3 kg
[~2024-04-10 12:41] MED LIST changes: +VISTARIL25 MG PO
[2024-04-10 15:19] VITALS: BP 130/78
== END 2024-04-10 15:25 | disposition home or self-care (01) ==
LOC: ED 12:41
DX: S93.104A Unspecified dislocation of right toe(s), initial encounter (principal); F17.200 Nicotine dependence, unspecified, uncomplicated; W22.8XXA Striking against or struck by other objects, initial encounter; Z88.1 Allergy status to other antibiotic agents; Z88.8 Allergy status to other drugs, medicaments and biological substances; Z88.5 Allergy status to narcotic agent
CPT/HCPCS: 73610; 73630

== ENCOUNTER 2025-03-23 20:33 | Emergency (ER) | payer OTHER ==
[~2025-03-23] VITALS: Ht 172.7 cm; Wt 100.5 kg
[2025-03-23] MEDS ORDERED: DIPHTH,PERTUSS(ACELL),TET VAC 0.5 ML SYRINGE IM ONE (21:00)
[2025-03-23 22:13] VITALS: BP 134/88
== END 2025-03-23 22:13 | disposition home or self-care (01) ==
LOC: ED 20:33
DX: S60.417A Abrasion of left little finger, initial encounter (principal); W45.8XXA Other foreign body or object entering through skin, initial encounter; F17.200 Nicotine dependence, unspecified, uncomplicated; Z88.5 Allergy status to narcotic agent; Z88.8 Allergy status to other drugs, medicaments and biological substances; Z88.1 Allergy status to other antibiotic agents; Z23 Encounter for immunization
CPT/HCPCS: 12002; 73140; 90471; 90715; 99283-25

== ENCOUNTER 2025-04-24 21:33 | Emergency (ER) | payer OTHER ==
[~2025-04-24] VITALS: Ht 172.7 cm; Wt 102.6 kg
[~2025-04-24 21:33] MED LIST changes: +IPRAT-ALBUT 0.5-3 ML INH; +LASIX40 MG PO; +MONTELUKAST SOD10 MG PO; +POTASSIUM CHLO20 ME2 PO; +VENTOLIN HFA18 GM INH
[2025-04-25] MEDS ORDERED: METOPROLOL SUCCINATE 25 MG TABCR PO ONE (00:15)
[2025-04-25] MEDS ORDERED: TOPROL XL25 MG PO (00:15)
[2025-04-25] MEDS ORDERED: METOPROLOL SUCCINATE 25 MG TABCR ONE (00:25)
[2025-04-25 00:35] VITALS: BP 142/101
== END 2025-04-25 00:36 | disposition home or self-care (01) ==
LOC: ED 21:33
DX: I80.01 Phlebitis and thrombophlebitis of superficial vessels of right lower extremity (principal); I10 Essential (primary) hypertension; G43.909 Migraine, unspecified, not intractable, without status migrainosus; J45.909 Unspecified asthma, uncomplicated; F17.200 Nicotine dependence, unspecified, uncomplicated; Z79.899 Other long term (current) drug therapy; Z88.1 Allergy status to other antibiotic agents; Z88.5 Allergy status to narcotic agent; Z88.8 Allergy status to other drugs, medicaments and biological substances
CPT/HCPCS: 36415; 85379; 93971; 99284-25

== ENCOUNTER 2025-05-09 14:28 | Emergency (ER) | payer OTHER ==
[~2025-05-09] VITALS: Ht 172.7 cm; Wt 104.7 kg
[~2025-05-09 14:28] MED LIST changes: +TOPROL XL25 MG PO
[2025-05-09] MEDS ORDERED: CEPHALEXIN500 MG PO (14:41)
[2025-05-09] MEDS ORDERED: MORPHINE SULFATE 4 MG/ML VIAL IV ONE (14:45)
[2025-05-09] MEDS ORDERED: SODIUM CHLORIDE 0.9% 500 ML IV ONE (14:45)
[2025-05-09 14:57] LABS: BASOPHILS 0.5 % (0.1-1.2); EOSINOPHILS 8.0 % (0.7-5.8); LYMPHOCYTES 22.0 % (19.3-51.7); MCH 29.8 PG (25.6-32.2); MCHC 34.0 g/dL (32.2-35.5); MCV 87.4 fL (79.4-94.8); MONOCYTES 6.0 % (4.7-12.5); NEUTROPHILS 63.2 % (34.0-71.1); RBC 4.30 M/uL (3.93-5.22)
[2025-05-09 15:13] LABS: ALT (SGPT) 27.0 U/L (14-59); AST (SGOT) 38.0 U/L (15-37); GLOMERULAR FILTRATION RATE,EST 114.0 mL/min (>60); PROTEIN, TOTAL 7.7 g/dL (6.4-8.2); UREA NITROGEN 13.0 mg/dL (7-18)
[2025-05-09 16:44] VITALS: BP 117/76
== END 2025-05-09 16:45 | disposition home or self-care (01) ==
LOC: ED 14:28
PROVIDERS: Emergency Medicine
DX: R51.9 Headache, unspecified (principal); L03.115 Cellulitis of right lower limb; J45.909 Unspecified asthma, uncomplicated; I50.9 Heart failure, unspecified; F17.200 Nicotine dependence, unspecified, uncomplicated; Z86.718 Personal history of other venous thrombosis and embolism; Z88.1 Allergy status to other antibiotic agents; Z88.5 Allergy status to narcotic agent; Z88.8 Allergy status to other drugs, medicaments and biological substances
CPT/HCPCS: 36415; 70450; 80053; 85025; 96374; 96375; 99284-25; J2270; J2405; J7040

== ENCOUNTER 2025-06-08 12:25 | Emergency (ER) | payer OTHER ==
[~2025-06-08] VITALS: Ht 172.7 cm; Wt 102.9 kg
[~2025-06-08 12:25] MED LIST changes: +CEPHALEXIN500 MG PO; +RIZATRIPTAN10 M1 PO
[2025-06-08 13:47] LABS: BASOPHILS 0.7 % (0.1-1.2); EOSINOPHILS 5.6 % (0.7-5.8); LYMPHOCYTES 27.4 % (19.3-51.7); MCH 29.4 PG (25.6-32.2); MCHC 33.7 g/dL (32.2-35.5); MCV 87.1 fL (79.4-94.8); MONOCYTES 7.5 % (4.7-12.5); NEUTROPHILS 58.6 % (34.0-71.1); RBC 4.66 M/uL (3.93-5.22)
[2025-06-08 14:07] LABS: ALT (SGPT) 16.0 U/L (14-59); AST (SGOT) 20.0 U/L (15-37); GLOMERULAR FILTRATION RATE,EST 117.0 mL/min (>60); PROTEIN, TOTAL 8.0 g/dL (6.4-8.2); UREA NITROGEN 13.0 mg/dL (7-18)
[2025-06-08] MEDS ORDERED: HYDROXYZINE HCL50 MG PO (14:09)
[2025-06-08] MEDS ORDERED: POTASSIUM CHLORIDE 10 MEQ TABCR PO ONE (15:15)
[2025-06-08] MEDS ORDERED: POTASSIUM CHLORIDE 20 MEQ in DEXTROSE 5% 250 ML IV ONE (15:15)
[2025-06-08 18:16] VITALS: BP 115/72
== END 2025-06-08 18:11 | disposition home or self-care (01) ==
LOC: ED 12:25
PROVIDERS: Emergency Medicine
DX: R60.0 Localized edema (principal); E87.6 Hypokalemia; J45.909 Unspecified asthma, uncomplicated; I50.9 Heart failure, unspecified; G51.0 Bell's palsy; F17.200 Nicotine dependence, unspecified, uncomplicated; Z88.1 Allergy status to other antibiotic agents; Z88.8 Allergy status to other drugs, medicaments and biological substances; Z79.899 Other long term (current) drug therapy
CPT/HCPCS: 36415; 80053; 83605; 83735; 83880; 84484; 85025; 93971; 96365; 96366; 99284-25; A9270; J3480; J7060

== ENCOUNTER 2025-06-25 20:32 | Emergency (ER) | payer OTHER ==
[~2025-06-25] VITALS: Ht 172.7 cm; Wt 105.0 kg
[~2025-06-25 20:32] MED LIST changes: +HYDROXYZINE HCL50 MG PO
[2025-06-25] MEDS ORDERED: NITROGLYCERIN PACKET TOP ONE (20:45)
[2025-06-25] MEDS ORDERED: ASPIRIN 81 MG CHEW PO ONE (20:45)
[2025-06-25 20:48] LABS: BASOPHILS 1.1 % (0.1-1.2); EOSINOPHILS 5.4 % (0.7-5.8); LYMPHOCYTES 34.7 % (19.3-51.7); MCH 29.6 PG (25.6-32.2); MCHC 33.8 g/dL (32.2-35.5); MCV 87.6 fL (79.4-94.8); MONOCYTES 7.9 % (4.7-12.5); NEUTROPHILS 50.8 % (34.0-71.1); RBC 4.12 M/uL (3.93-5.22)
[2025-06-25 20:59] LABS: INR 0.98 (0.80-1.30); PROTIME 12.3 Sec (11.2-14.2)
[2025-06-25 21:12] LABS: ALT (SGPT) 21.0 U/L (14-59); AST (SGOT) 16.0 U/L (15-37); GLOMERULAR FILTRATION RATE,EST 95.0 mL/min (>60); PROTEIN, TOTAL 6.9 g/dL (6.4-8.2); UREA NITROGEN 9.0 mg/dL (7-18)
[2025-06-25 21:44] LABS: INFLUENZA B NAA NEGATIVE (NEGATIVE); RESPIRATORY SYNCYTIAL VIR NAA NEGATIVE (NEGATIVE)
[2025-06-25] MEDS ORDERED: POTASSIUM CHLORIDE 10 MEQ TABCR PO ONE (22:00)
[2025-06-25] MEDS ORDERED: CYCLOBENZAPRINE10 MG PO (22:32)
[2025-06-25 22:53] VITALS: BP 115/83
--- NOTE | 2025-06-28 16:04 | EKG ---
[facility] [address] [facility] [place] [address] Signed Sinus rhythm with premature atrial complexes Nonspecific ST and T wave abnormality Abnormal ECG When compared with ECG of 15-MAY-2025 17:10, premature atrial complexes are now present Confirmed by Kenya Allan MD () on 06/28/2025 4:04:11 PM Electronically Signed By: KENYA ALLAN MD 06/28/25 1604 PATIENT NAME: SHERRY PANIAGUAN Electrocardiogram DATE OF : [birth year] PHYSICIAN: KENYA ALLAN MD REPORT #: [id number] REPORT IS CONFIDENTIAL AND NOT TO BE RELEASED WITHOUT AUTHORIZATION
== END 2025-06-25 23:03 | disposition home or self-care (01) ==
LOC: ED 20:32
PROVIDERS: Family Medicine
DX: R07.89 Other chest pain (principal); J45.909 Unspecified asthma, uncomplicated; I50.9 Heart failure, unspecified; F17.200 Nicotine dependence, unspecified, uncomplicated; Z86.718 Personal history of other venous thrombosis and embolism; Z88.1 Allergy status to other antibiotic agents; Z88.8 Allergy status to other drugs, medicaments and biological substances; Z88.5 Allergy status to narcotic agent; Z79.899 Other long term (current) drug therapy
CPT/HCPCS: 36415; 71045; 80053; 83735; 83880; 84484; 85025; 85379; 85610; 87502; 93005; 93010; A9270; U0002

== ENCOUNTER 2025-07-15 05:05 | Emergency (ER) | payer OTHER ==
[~2025-07-15] VITALS: Ht 172.7 cm; Wt 105.0 kg
[2025-07-15 05:25] LABS: BASOPHILS 0.8 % (0.1-1.2); EOSINOPHILS 7.6 % (0.7-5.8); LYMPHOCYTES 28.5 % (19.3-51.7); MCH 29.6 PG (25.6-32.2); MCHC 33.1 g/dL (32.2-35.5); MCV 89.6 fL (79.4-94.8); MONOCYTES 7.0 % (4.7-12.5); NEUTROPHILS 55.9 % (34.0-71.1); RBC 4.25 M/uL (3.93-5.22)
[2025-07-15] MEDS ORDERED: SPIRIVA RESPIMAT4 G1 INH (05:26)
[2025-07-15] MEDS ORDERED: LISINOPRIL10 MG PO (05:26)
[2025-07-15] MEDS ORDERED: FUROSEMIDE 100 MG/10 ML VIAL IV ONE (05:30)
[2025-07-15 05:51] LABS: ALT (SGPT) 15.0 U/L (14-59); AST (SGOT) 11.0 U/L (15-37); GLOMERULAR FILTRATION RATE,EST 113.0 mL/min (>60); PROTEIN, TOTAL 7.0 g/dL (6.4-8.2); UREA NITROGEN 9.0 mg/dL (7-18)
[2025-07-15] MEDS ORDERED: POTASSIUM CHLORIDE 10 MEQ TABCR PO ONE (06:00)
[2025-07-15] MEDS ORDERED: POTASSIUM CHLO20 ME2 PO (06:59)
[2025-07-15] MEDS ORDERED: LASIX40 MG PO (06:59)
[2025-07-15 07:08] VITALS: BP 141/86
--- NOTE | 2025-07-16 15:01 | EKG ---
[facility] [address] [facility] [place] [address] Signed Sinus rhythm with occasional premature ventricular complexes Nonspecific ST and T wave abnormality Prolonged QT Abnormal ECG When compared with ECG of 25-JUN-2025 20:33, premature ventricular complexes are now present premature atrial complexes are no longer present Confirmed by Kenya Allan MD () on 07/16/2025 3:01:03 PM Electronically Signed By: KENYA ALLAN MD 07/16/25 1501 PATIENT NAME: SHERRY PANIAGUA Electrocardiogram DATE OF : [birth year] PHYSICIAN: KENYA ALLAN MD REPORT #: [id number] REPORT IS CONFIDENTIAL AND NOT TO BE RELEASED WITHOUT AUTHORIZATION
== END 2025-07-15 07:09 | disposition home or self-care (01) ==
LOC: ED 05:05
PROVIDERS: Family Medicine
DX: I50.9 Heart failure, unspecified (principal); J45.909 Unspecified asthma, uncomplicated; F17.200 Nicotine dependence, unspecified, uncomplicated; Z79.899 Other long term (current) drug therapy; Z88.1 Allergy status to other antibiotic agents; Z88.8 Allergy status to other drugs, medicaments and biological substances
CPT/HCPCS: 36415; 71045; 80053; 83880; 84484; 85025; 93005; 93010; 96374; 99285-25; A9270; J1938

== ENCOUNTER 2025-08-18 13:10 | Emergency (ER) | payer OTHER ==
[~2025-08-18] VITALS: Ht 172.7 cm; Wt 108.7 kg
[~2025-08-18 13:10] MED LIST changes: +LISINOPRIL10 MG PO; +SPIRIVA RESPIMAT4 G1 INH
[2025-08-18] MEDS ORDERED: ONDANSETRON 4 MG TAB ODT SL ONE (13:45)
[2025-08-18] MEDS ORDERED: OXYCODONE/APAP 5/325 TAB PO ONE (13:45)
[2025-08-18] MEDS ORDERED: PERCOCET 5-3251 EACH PO (14:14)
[2025-08-18] MEDS ORDERED: ONDANSETRON ODT4 MG PO (14:15)
[2025-08-18 15:14] VITALS: BP 125/77
== END 2025-08-18 15:10 | disposition home or self-care (01) ==
LOC: ED 13:10
DX: S62.614A Displaced fracture of proximal phalanx of right ring finger, initial encounter for closed fracture (principal); S62.616A Displaced fracture of proximal phalanx of right little finger, initial encounter for closed fracture; F17.200 Nicotine dependence, unspecified, uncomplicated; Z88.1 Allergy status to other antibiotic agents; Z88.8 Allergy status to other drugs, medicaments and biological substances; W01.10XA Fall on same level from slipping, tripping and stumbling with subsequent striking against unspecified object, initial encounter
CPT/HCPCS: 29125; 73110; 73130; 99283; A9270